=== PATIENT | female | born 1960 | race Caucasian/White ===

== ENCOUNTER 2019-05-03 07:19 | Emergency (ER) | payer OTHER, SELFPAY ==
[2019-05-03] VITALS (8 sets, daily range): BP systolic 115–159; BP diastolic 69–92; PULSE 60–85; RESP 11–18; TEMP 36.5; O2SAT 98–100
--- NOTE | ~2019-05-03 | XR_ITS ---
EXAMINATION: XR chest 1V portable EXAM DATE: 05/03/2019 08:15 INDICATION: Mid chest pain. TECHNIQUE: Portable AP frontal chest x-ray was obtained. Comparison is made to prior examination from 01/07/2019. FINDINGS: The lungs are clear. There are no pleural effusions. The cardiomediastinal silhouette is within normal limits. There is no pneumothorax suspected. The bones and soft tissues are unremarkab le. There are cholecystectomy clips. IMPRESSION: No acute cardiopulmonary findings. Reviewed, dictated and finalized at location B. [employer]
--- NOTE | 2019-05-03 07:31 | ECG_ITS ---
Measurements Intervals [address] Rate: 60 P: 61 CT: 134 QRS: 48 QRSD: 94 T: 55 QT: 383 QTc: 383 Interpretive Statements SINUS RHYTHM NORMAL ECG Electronically Signed On 05-03-2019 8:05:50 [employer] by Kirt Ruiz D.O.
--- NOTE | 2019-05-03 07:32 | ED.ANXIETY ---
HPI - Anxiety General Chief Complaint: Psychiatric Symptoms Stated Complaint: mini seizures , anxiety Time Seen by Provider: 05/03/19 07:25 Source: RN notes reviewed History of Present Illness HPI narrative: Patient presents to emergency department from home for anxiety. Patient states anxiety has been bad for the past 4 days. States she has a history of anxiety and was on Xanax but is been out of her Xanax for the last week. Patient says she was having some Suicidal thoughts 2 days ago and had thought of driving her car off of a bridge to end her anxiety but has no current suicidal thoughts. Patient states that when she gets anxious she feels like there is a shortness of breath that builds up in her abdomen and comes up through her chest. Denies any definitive chest pain Related Data Home Medications Medication Instructions Recorded Confirmed albuterol sulfate 90 mcg/actuation 2 puff INHALATION Q4H PRN gm 01/28/19 aerosol inhaler aspirin 81 mg tablet,delayed 81 mg PO DAILY 01/28/19 release dimenhydrinate 50 mg tablet 50 mg PO Q4-6H PRN 01/28/19 Allergies Allergy/AdvReac Type Severity Reaction Status Date / Time Penicillins Allergy Unknown Unknown Verified 05/03/19 07:33 Review of Systems Review of Systems: Narrative: Gen.: Denies fevers or chills Eyes: Denies eye pain or visual change ENT: Denies congestion Respiratory: Reports shortness of breath CV: Denies chest pain or palpitations GI: Denies abdominal pain nausea, emesis or diarrhea Musculoskeletal: Denies back pain or muscle pain Neuro: Denies numbness, tingling, weakness or focal weakness Skin: Denies rash Psych: Reports anxiety Except as documented, all other systems reviewed and negative [facility] Past Medical History Medical History Anxiety Arthritis Asthma Bilateral carpal tunnel syndrome Deficient knowledge of caesarean delivery Depression FH: cholecystectomy GI bleed Glaucoma Hiatal hernia Hypercholesterolemia Hypertension Lightheadedness VIDAL (obstructive sleep apnea) Pneumonia Urine ketones Vertigo Family History Family History Other Diabetes mellitus Family history of Alzheimer's disease Family history of cardiovascular disease Family history of coronary artery disease Hypertension Social History Social History Smoking status: Former smoker Second hand tobacco smoke exposure: No Smoking end date: 03/24/99 Alcohol intake: never Gender identity (if verbalized by the patient): Female Exam Narrative: Exam Narrative: APPEARANCE: No acute distress, nontoxic, resting in bed EYES: EOMI HEENT: Normocephalic, atraumatic, OMM RESPIRATORY: No respiratory distress Clear to auscultation bilaterally with no rhonchi wheezing or rales. CARDIOVASCULAR: Regular rate and rhythm without murmurs rubs or gallops. ABDOMINAL: Soft, nontender, nondistended, no rebound or guarding MUSCULOSKELETAl: Moves all extremities. No clubbing, cyanosis or edema. NEURO: Awake and alert. Following commands, speech normal, no focal deficits SKIN:: Warm, dry. No rashes lesions or abrasions PSYCHIATRIC: Anxious in appearance, denies suicidal ideation, denies homicidal ideation Mal affect/mood, Course Course Emergency Course: Patient evaluated by crisis special agent [employer]. Patient is felt stable for discharge at this time with follow-up as an outpatient. Again discussed with patient denies any suicidal homicidal ideation. States feeling much better following Ativan Discussed with patient results of workup and diagnosis. Discussed need for follow-up with primary care, proper use of medication, and reasons to return to the emergency department. Patient understands and agrees to current treatment plan Vital Signs Vital signs: Vital Signs Temperature 97.7 F 05/03/19 07:24 Pulse Rate
[2019-05-03] MEDS: LORAZEPAM INJ 2 MG/ML VIAL 0.5 MG IV PUSH (07:37)
[2019-05-03 07:49] LABS: Basophils Absolute Auto 0.1 K/mm3 (0.0-0.1); Basophils Percent Auto 0.6 % (0.2-1.2); Eosinophils Percent Auto 0.4 % (0-4.4); Hematocrit 41.4 % (37.0-47.0); Hemoglobin 13.2 g/dL (12.0-15.0); Immature Granulocyte Absolute 0.03 K/mm3 (0.00-0.031); Immature Granulocyte Percent A 0.4 % (0-0.5); Lymphocytes Absolute Auto 1.59 K/mm3 (0.9-3.2); Lymphocytes Percent Auto 18.6 % (18.3-44.2); Mean Corpuscular HGB Conc 31.9 g/dl (32-36); Mean Corpuscular Hemoglobin 28.4 pg (26-34); Mean Corpuscular Volume 89.2 fl (80-100); Mean Platelet Volume 9.4 fl (7.4-10.4); Monocytes Absolute Auto 0.5 K/mm3 (0.1-0.6); Neutrophils Absolute Auto 6.3 K/mm3 (1.3-6.7); Platelet Count Result 298 k/mm3 (150-375); Red Blood Count 4.64 M/mm3 (4.2-5.4); Red Cell Distribution Width 14.3 % (11.5-14.5); White Blood Count 8.5 K/mm3 (4.5-10.0)
[2019-05-03 08:01] LABS: Alanine Aminotransferase 20 U/L (4-35); Albumin Level 4.6 g/dL (3.5-5.1); Alkaline Phosphatase 88 U/L (38-126); Aspartate Amino Transferase 25 U/L (14-36); Bilirubin,Total 0.6 mg/dL (0.2-1.3); Blood Urea Nitrogen 19 mg/dL (7-17); Calcium 9.6 mg/dL (8.4-10.2); Carbon Dioxide 25 mmol/L (22-30); Chloride 103 mmol/L (98-107); Estimated Glomerular Filt Rate > 60; Glucose 110 mg/dL (65-105); INR 0.9; Prothrombin Time 12.1 Seconds (11.1-14.7); Sodium 141 mmol/L (137-145)
[2019-05-03 08:02] LABS: Partial Thromboplastin Time 23.5 SECONDS (22.3-36.8)
[2019-05-03 08:03] LABS: Ethanol < 10 mg/dL (<10)
[2019-05-03 08:04] LABS: Add Urine Microscopic? YES; Amorphous Sediment Urine Few; Appearance Urine Cloudy (Clear); Bacteria Urine Trace /hpf; Bilirubin Urine Negative (Negative); Blood Urine 1+ (Negative); Color Urine Yellow (Yellow); Glucose Urine UA Negative (Negative); Ketones Urine Trace mg/dL (Negative); Leukocyte Esterase Ur Negative LEU/UL (Negative); Mucus Urine Heavy /lpf; Nitrate Urine Negative (Negative); Protein Urine 1+ mg/dL (Negative); RBC Urine 0-2 /hpf (0-2); Specific Grav Ur 1.021 (1.001-1.035); Squamous Epithelial Cell Urine Occasional /hpf (Few); Urobilinogen Urine Negative mg/dL (<2.0); WBC Urine 0-3 /hpf
[2019-05-03 08:10] LABS: Amphetamine Screen Urine Negative (Negative); Barbiturate Screen Urine Negative (Negative); Benzodiazepines Screen Urine Positive (Negative); Cannabinoid Screen Urine Positive (Negative); Cocaine Screen Urine Negative (Negative); Methadone Screen Urine Negative (Negative); Opiate Screen Urine Negative (Negative); Phencyclidine Screen Urine Negative (Negative)
[2019-05-03 08:12] LABS: Troponin I < 0.012 ng/mL (0.000-0.034)
== END 2019-05-03 10:48 | disposition home or self-care (01) ==
PROVIDERS: Emergency Provider Emergency Medicine; PCP Family Medicine
DX: F41.9 Anxiety disorder, unspecified (principal); M19.90 Unspecified osteoarthritis, unspecified site; J45.909 Unspecified asthma, uncomplicated; F32.9 Major depressive disorder, single episode, unspecified; E78.5 Hyperlipidemia, unspecified; I10 Essential (primary) hypertension; G47.30 Sleep apnea, unspecified; Z87.891 Personal history of nicotine dependence
CPT/HCPCS: 36415; 71045; 80053; 80307; 81001; 84443; 84484; 85025; 85610; 85730; 93005; 96374; 99284; J2060

== ENCOUNTER 2019-06-01 12:22 | Emergency (ER) | payer OTHER, SELFPAY ==
[2019-06-01] VITALS (18 sets, daily range): BP systolic 131–151; BP diastolic 63–78; PULSE 54–66; RESP 10–19; TEMP 36.9; O2SAT 90–100
--- NOTE | ~2019-06-01 | CT_ITS ---
EXAMINATION: CT BRAIN W/O DATE: 06/01/2019 13:05 INDICATION: Dizziness TECHNIQUE: Computed tomography (CT) of the head was performed without intravenous contrast. The dose- length product was 529.67 mGy-cm. The mA was adjusted according to patient size. Iterative reconstruc tion technique was employed. COMPARISON: No prior studies for comparison. FINDINGS: Normal brain parenchymal volume for age. Normal silvestre-white differentiation. No acute intrac ranial hemorrhage, infarction, mass or mass effect. No ventriculomegaly or midline shift. Midline sagittal images demonstrate a normal corpus callosum, c raniovertebral junction and sella turcica. Basilar cisterns are patent. Paranasal sinuses and mastoids are pneumatized. No depressed skull fractures. IMPRESSION: 1. No acute intracranial abnormality. Reviewed, dictated and finalized at location A.
--- NOTE | ~2019-06-01 | XR_ITS ---
EXAMINATION: XR chest 2V 06/01/2019 13:10 INDICATION: Dyspnea. Seizure. PROCEDURE: 2 view chest COMPARISON: Comparison to multiple prior studies sequentially, with oldest reviewed study dated 07/2015. FINDINGS: The lungs are clear. The cardiomediastinal silhouette is within normal limits. There are no pleural effusions. There is no pneumothorax suspected. IMPRESSION: 1: NO ACUTE CARDIOPULMONARY DISEASE. Reviewed, dictated and finalized at location A.
--- NOTE | 2019-06-01 12:41 | ED.CHESTPAIN ---
HPI - Chest Pain General Chief Complaint: Chest Pain Stated Complaint: cp Time Seen by Provider: 06/01/19 12:24 Source: patient Mode of arrival: ambulatory Limitations: no limitations History of Present Illness HPI narrative: Pt is a 58 y/o female who presents to the ED with c/o CP. Pt states that she has a H/O CAD and HTN. She notes that she gets spells where she gets a johnson of electricity to her head , SOB, and feels like an elephant is sitting on her chest. She then gets hot flashes and cold sweats that last for 1-2 minutes. Pt had an episode yesterday while she was sitting in her office and then she had another episode today while she was walking. Pt is supposed to see a new mandarin tutor tomorrow but she does not know their name. MD complaint: chest pain Pertinent past history: coronary artery disease Onset (ago): day(s) (yesterday) Timing of current episode: episodic Onset: during rest and during exertion Quality: other ( elephant on chest ) Associated symptoms: diaphoresis, dyspnea and other (chills, johnson of electricity to her head ) Related Data Home Medications Medication Instructions Recorded Confirmed albuterol sulfate 90 mcg/actuation 2 puff INHALATION Q4H PRN gm 01/28/19 aerosol inhaler aspirin 81 mg tablet,delayed 81 mg PO DAILY 01/28/19 release dimenhydrinate 50 mg tablet 50 mg PO Q4-6H PRN 01/28/19 Allergies Allergy/AdvReac Type Severity Reaction Status Date / Time Penicillins Allergy Unknown Unknown Verified 06/01/19 12:33 Review of Systems Review of Systems: All systems reviewed & are unremarkable except as noted in HPI and below Constitutional: Constitutional: Reports chills and Reports other (sweats) Cardiovascular: Cardiovascular: Reports chest pain Respiratory: Respiratory: Reports dyspnea Neurologic: Reports other ( johnson of electricity to her head ) [facility] Social History Social History Smoking status: Former smoker Second hand tobacco smoke exposure: No Smoking end date: 03/24/99 Alcohol intake: never Gender identity (if verbalized by the patient): Female Exam Narrative: Exam Narrative: APPEARANCE: No acute distress, nontoxic, resting in bed HEENT: Normocephalic, atraumatic, OMM, TMs clear bilaterally EYES: PERRL, EOMI NECK: Supple, nontender, full range of motion without pain, no meningismus RESPIRATORY: No respiratory distress, clear to auscultation bilaterally with no rhonchi wheezing or rales CARDIOVASCULAR: RRR s murmur ABDOMINAL: Soft, nontender, nondistended MUSCULOSKELETAL: Moves all extremities. No clubbing, cyanosis or edema. NEURO: A and O ?3, following commands, speech normal, no facial droop, muscle strength 5 out of 5 bilateral upper and lower extremities SKIN:: Warm, dry. Normal Color PSYCHIATRIC: Normal affect/mood Course Course Emergency Course: Patient is remained asymptomatic throughout stay in ED Reviewed old records patient with history of anxiety Discussed with patient results of workup and diagnosis. Discussed need for follow-up with primary care, proper use of medication, and reasons to return to the emergency department. Patient understands and agrees to current treatment plan Vital Signs Vital signs: Vital Signs Temperature 98.4 F 06/01/19 12:26 Pulse Rate 66 06/01/19 12:26 Respiratory Rate 16 06/01/19 12:26 Blood Pressure 141/78 H 06/01/19 12:26 Pulse Oximetry 100 06/01/19 12:26 Temperature 98.4 F 06/01/19 12:26 Pulse Rate 61 06/01/19 14:17 Respiratory Rate 17 06/01/19 14:17 Blood Pressure 148/67 H 06/01/19 14:17 Pulse Oximetry 96 06/01/19 14:17 MDM - Chest Pain MDM Narrative Medical decision making narrative: Patient's EKGs and labs are without significant high risk changes. Cardiac risk factors reviewed. Patient is felt likely low risk for ACS and reasonable for further risk stratification testing as an outpatient. Pain was not sudden or maxi
--- NOTE | 2019-06-01 12:44 | ECG_ITS ---
Measurements Intervals [place] Rate: 59 P: 66 AR: 148 QRS: 40 QRSD: 93 T: 46 QT: 410 QTc: 407 Interpretive Statements SINUS BRADYCARDIA BASELINE ARTIFACT- I, II, AVF BORDERLINE ECG Electronically Signed On 06-01-2019 13:00:19 CDT by Kirt Ruiz D.O.
[2019-06-01 13:02] LABS: Basophils Percent Auto 0.6 % (0.2-1.2); Eosinophils Percent Auto 0.6 % (0-4.4); Hemoglobin 12.2 g/dL (12.0-15.0); Immature Granulocyte Absolute 0.01 K/mm3 (0.00-0.031); Immature Granulocyte Percent A 0.1 % (0-0.5); Lymphocytes Absolute Auto 2.12 K/mm3 (0.9-3.2); Lymphocytes Percent Auto 31.3 % (18.3-44.2); Mean Corpuscular HGB Conc 32.1 g/dl (32-36); Mean Corpuscular Hemoglobin 28.2 pg (26-34); Mean Platelet Volume 9.6 fl (7.4-10.4); Monocytes Absolute Auto 0.6 K/mm3 (0.1-0.6); Monocytes Percent Auto 8.6 % (2.6-8.5); Neutrophils Percent Auto 58.8 % (45.5-73.1); Platelet Count Result 296 k/mm3 (150-375); Red Blood Count 4.32 M/mm3 (4.2-5.4); Red Cell Distribution Width 14.2 % (11.5-14.5); White Blood Count 6.8 K/mm3 (4.5-10.0)
[2019-06-01 13:13] LABS: Blood Urea Nitrogen 19 mg/dL (7-17); Calcium 9.5 mg/dL (8.4-10.2); Carbon Dioxide 27 mmol/L (22-30); Chloride 104 mmol/L (98-107); Estimated CRCL calculation 77 ml/min; Estimated Glomerular Filt Rate > 60; Glucose 100 mg/dL (65-105); INR 0.9; Partial Thromboplastin Time 26.6 SECONDS (22.3-36.8); Potassium 3.8 mmol/L (3.4-5.0); Prothrombin Time 12.3 Seconds (11.1-14.7); Sodium 136 mmol/L (137-145)
[2019-06-01 13:16] LABS: D Dimer 0.28 ug/mL (<0.48)
[2019-06-01 13:25] LABS: Troponin I < 0.012 ng/mL (0.000-0.034)
[2019-06-01 15:55] LABS: Troponin I < 0.012 ng/mL (0.000-0.034)
== END 2019-06-01 16:39 | disposition home or self-care (01) ==
PROVIDERS: Emergency Provider Emergency Medicine; PCP Family Medicine
DX: R07.89 Other chest pain (principal); I25.10 Atherosclerotic heart disease of native coronary artery without angina pectoris; I10 Essential (primary) hypertension; Z87.891 Personal history of nicotine dependence; R42 Dizziness and giddiness
CPT/HCPCS: 36415; 70450; 71046; 80048; 84484; 85025; 85380; 85610; 85730; 93005; 99284

== ENCOUNTER 2019-10-05 14:51 | Outpatient (CLI) | payer OTHER, SELFPAY ==
--- NOTE | ~2019-10-05 | US_ITS ---
EXAMINATION: US joint non vasc comp LT DATE: 10/05/2019 15:22 INDICATION: Lump in the left popliteal fossa. Assess for Mckinney's cyst. TECHNIQUE: Multiple grayscale and Doppler ultrasound images of the left popliteal fossa were obtained with the patient both supine and standing. COMPARISON: None FINDINGS: No Mckinney's cyst or abnormal mass or fluid collections identified at the left popliteal fossa. The pop liteal artery and vein appear unremarkable with no evident aneurysm. IMPRESSION: 1. Unremarkable study with no Mckinney's cyst or other etiology identified for the reported palpable lum p at the left popliteal fossa. Reviewed, dictated and finalized at location A. IMPRESSION: 1. Unremarkable study with no Mckinney's cyst or other etiology identified for the reported palpable lump at the left popliteal fossa.
== END 2019-10-05 14:52 | disposition home or self-care (01) ==
PROVIDERS: PCP Family Medicine; Visit Provider Family Medicine
DX: R22.9 Localized swelling, mass and lump, unspecified (principal); M71.20 Synovial cyst of popliteal space [Baker], unspecified knee
CPT/HCPCS: 76881

== ENCOUNTER 2019-11-13 11:52 | Outpatient (CLI) | payer OTHER, SELFPAY ==
--- NOTE | ~2019-11-13 | XR_ITS ---
EXAMINATION: HAND-JAISON ARTHRITIS 3+VIEWS DATE: 11/13/2019 12:12 INDICATION: Primary osteoarthritis of the right hand. Bilateral thumb pain. TECHNIQUE: Posteroanterior, lateral, and oblique views of the left and of the right hands as well as a ballcatchers view of both hands were obtained. COMPARISON: None. FINDINGS: Alignment is normal. No fracture. Relatively symmetric pattern of polyarticular osteoarthritis of bot h hands, severe at the bilateral first carpal metacarpal joints, left greater than right, moderate at the bilateral third distal interphalangeal and right first interphalangeal joints and minimal to mil d at the remaining interphalangeal joints and a few of the remaining metacarpophalangeal joints. No c ortical erosions to suggest an inflammatory arthritis. IMPRESSION: 1. Relatively symmetric polyarticular osteoarthritis of both hands, severe at the bilateral first car pal metacarpal joints. Reviewed, dictated and finalized at location A. IMPRESSION: 1. Relatively symmetric polyarticular osteoarthritis of both hands, severe at t he bilateral first carpal metacarpal joints.
--- NOTE | ~2019-11-13 | XR_ITS ---
EXAMINATION: XR shoulder LT min 2V DATE: 11/13/2019 12:12 INDICATION: Impingement syndrome of the left shoulder TECHNIQUE: AP internally and externally rotated, AP oblique externally rotated and axillary views of the left shoulder were obtained. COMPARISON: Chest radiograph dated 08/07/2018 FINDINGS: Normal alignment. No fracture.Minimal acromioclavicular osteoarthritis. Glenohumeral joint space daryl ears normal. Indeterminate chronic lucent lesion with thin sclerotic margins along the inferior gleno id which can be seen on chest radiograph dated 08/07/2018 potentially a degenerative subarticular cyst . Visualized portions of the left lung are clear. Soft tissues are unremarkable. IMPRESSION: Chronic lucent lesion at the inferior left glenoid potentially a degenerative subarticular cyst altho ugh the joint space appears relatively preserved. Reviewed, dictated and finalized at location A. IMPRESSION: Chronic lucent lesion at the inferior left glenoid potentially a degenerative s ubarticular cyst although the joint space appears relatively preserved.
== END 2019-11-13 11:53 | disposition home or self-care (01) ==
PROVIDERS: PCP Family Medicine; Visit Provider Physician Assistant
DX: M19.041 Primary osteoarthritis, right hand (principal); M19.042 Primary osteoarthritis, left hand; M75.42 Impingement syndrome of left shoulder
CPT/HCPCS: 73030; 73130

== ENCOUNTER 2019-11-24 10:36 | Outpatient (CLI) | payer OTHER, SELFPAY ==
--- NOTE | ~2019-11-24 | MR_ITS ---
EXAMINATION: MR shoulder LT wo con DATE: 11/24/2019 12:04 INDICATION: Impingement syndrome presenting with left shoulder pain TECHNIQUE: Magnetic resonance imaging (MRI) of the left shoulder was performed without intravenous co ntrast. Sequences included axial PD-weighted FS FSE, coronal oblique PD-weighted FS FSE, coronal obli que T2-weighted FS FSE, sagittal PD-weighted FS FSE, and sagittal T1-weighted SE. COMPARISON: None. FINDINGS: Evaluation is limited by mild motion artifact on the sagittal T2-weighted sequence and moderate motio n artifact on the axial and oblique coronal sequences. Coracoacromial arch: The acromion undersurface is curved in morphology (type II) with tiny subacromial spur at the acromia l insertion of the normal coracoacromial ligament. Minimal acromioclavicular osteoarthritis. Rotator cuff: Moderate supraspinatus and mild infraspinatus tendinopathy. There is thinning of the distal 2 cm of t he supraspinatus tendon with partial-thickness undersurface tear. There appears to be small partial-t hickness articular sided tear/split tear measuring 1-2 mm in AP with at the insertion of the posterio r supraspinatus tendon. No definitive full-thickness tear defect appreciated however full-thickness p erforation cannot be excluded. Mild subscapularis tendinopathy. The long head of the biceps tendon ap pears subluxed across the medial rim of the intertubercular groove suggesting an intrasubstance split tear between the bursal side of the tendon which remains attached to the transverse humeral ligament and the mid deeper portion of the tendon which remains attached to the lesser tuberosity. The teres minor tendon is normal. Normal rotator cuff muscle bulk and signal. Biceps tendon, glenoid labrum and glenohumeral cartilage: Long head of the biceps tendon is normal. Likely tear at the posterior superior glenoid labrum which appears relatively convincing despite the presence of motion on the axial and coronal T2-weighted kaitlin ges. Deep chondral ulceration versus fissure with fluid signal extending deep to the cortex at the in ferior glenoid which is best appreciated on coronal series 6, image 8. There is underlying subarticul ar cystic change at the inferior glenoid. Fluid: Small amount of fluid and mild synovitis at the deep subscapular recess. No loose osteochondral geo s. Small amount of fluid and additional mild synovitis in the subacromial/subdeltoid bursa consistent which could be related to mild bursitis or compression of the glenoid humeral joint fluid through a full-thickness rotator cuff perforation. Small amount of fluid in the long head biceps tendon sheath. Bones: Bone alignment is normal. No fracture or pathologic marrow replacing process. IMPRESSION: 1. Moderately limited study due to significant motion on multiple sequences. 2. Moderate supraspinatus tendinopathy with poorly defined articular sided tear resulting in attenuat ion of the distal 2 cm the tendon and with small bursal sided tear at the posterior insertion. 2. Mild subscapularis tendinopathy with intra-articular split tear between the bursal side of the ten don in the mid to deep or portion which remains attached to the lesser tuberosity allowing medial sub luxation of the long head biceps tendon into the tear defect. 3. Mild glenohumeral osteoarthritis with small region of high-grade chondromalacia the inferior gleno id. 4. Likely tear at the posterior superior glenoid labrum. 5. Fluid in the subacromial/subdeltoid bursa which could be related to bursitis or decompression of t he glenohumeral joint effusion through possible full-thickness supraspinatus tendon perforation. Reviewed, dictated and finalized at location B. IMPRESSION: 1. Moderately limited stud
== END 2019-11-24 10:37 | disposition home or self-care (01) ==
PROVIDERS: PCP Family Medicine; Visit Provider Physician Assistant
DX: M75.42 Impingement syndrome of left shoulder (principal); M19.012 Primary osteoarthritis, left shoulder
CPT/HCPCS: 73221

== ENCOUNTER 2019-11-25 10:20 | Emergency (ER) | payer OTHER, SELFPAY ==
[2019-11-25] VITALS (7 sets, daily range): BP systolic 97–142; BP diastolic 51–91; PULSE 59–67; RESP 15–98; TEMP 36.8; O2SAT 15–98
--- NOTE | ~2019-11-25 | XR_ITS ---
EXAMINATION: XR chest 1V portable DATE: 11/25/2019 11:23 INDICATION: Chest pain. TECHNIQUE: A single frontal view of the chest was obtained. COMPARISON: Chest 2 views 06/01/2019 FINDINGS: The chest demonstrates clear lungs without pneumonia, pleural effusion, or pneumothorax. Th e heart size is normal. Surgical clips in the right upper quadrant are likely from cholecystectomy. IMPRESSION: 1. No acute cardiopulmonary disease. Reviewed, dictated and finalized at location A.
--- NOTE | 2019-11-25 10:38 | ECG_ITS ---
SINUS RHYTHM BASELINE ARTIFACT- I, II, III, AVL NORMAL ECG Electronically Signed On 11-25-2019 12:22:35 CDT by Kirt Ruiz D.O. COMPARED TO ECG 06/01/2019 12:28:51 SINUS RHYTHM NOW PRESENT MTDD
--- NOTE | 2019-11-25 10:49 | ED.GENADULT ---
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 Related Data Home Medications Medication Instructions Recorded Confirmed aspirin 81 mg tablet,delayed 81 mg PO DAILY 01/28/19 11/09/19 release dimenhydrinate 50 mg tablet 50 mg PO Q4-6H PRN 01/28/19 11/09/19 alprazolam 0.25 mg tablet 0.25 mg PO QID PRN tablet 08/09/19 11/09/19 escitalopram oxalate 20 mg tablet 20 mg PO DAILY 08/09/19 11/09/19 pitavastatin calcium 2 mg tablet 2 mg PO QPM 08/09/19 11/09/19 Allergies Allergy/AdvReac Type Severity Reaction Status Date / Time Penicillins Allergy Unknown Unknown Verified 11/25/19 11:27 Review of Systems Review of Systems: All systems reviewed & are unremarkable except as noted in HPI and below PMFSH Past Medical History Medical History Anxiety Arthritis Asthma Bilateral carpal tunnel syndrome BMI 33.0-33.9,adult Deficient knowledge of caesarean delivery Depression FH: cholecystectomy Generalized anxiety disorder GI bleed Glaucoma Hiatal hernia Hypercholesterolemia Hypertension Impingement syndrome of left shoulder Lightheadedness VIDAL (obstructive sleep apnea) Osteoarthritis of both hands Pneumonia Primary hypertension Upper back pain Urine ketones Vertigo Surgical History Surgical History H/O: hysterectomy History of bladder surgery Hx of tonsillectomy Family History Family History Other Diabetes mellitus Family history of Alzheimer's disease Family history of cardiovascular disease Family history of coronary artery disease Hypertension Social History Social History Smoking status: Former smoker Second hand tobacco smoke exposure: No Smoking end date: 03/24/99 Alcohol intake: never Gender identity (if verbalized by the patient): Female Exam Narrative: Exam Narrative: GENERAL: Well-appearing, well-nourished, uncomfortable, and in no acute distress. HEAD: Normocephalic, atraumatic. EYES: PERRLA and EOMI. ENT: Nares clear, no rhinorrhea or epistaxis. Mucous membranes moist. Oropharynx without tonsillar hypertrophy exudate or other lesions. NECK: Supple. No adenopathy or masses. CHEST: Clear to auscultation. No respiratory distress. No wheezes rales or rhonchi HEART: Regular rate and rhythm. No murmur heard. Normal peripheral pulses. ABDOMEN: Soft, nontender, nondistended EXTREMITIES: Normal range of motion. No edema. Tenderness of the left upper thoracic paraspinal musculature. No midline tenderness no cervical tenderness no rash or other deformities SKIN: Warm, dry, no rash. NEURO: No focal deficits. Alert and oriented x3. PSYCH: Normal mood and affect. Course Course Emergency Course: Patient in the room aware of case findings treatment plan and diagnosis agreeing to follow-up with orthopedic surgery and primary care had improvement with medications no high risk changes in the blood work or imaging Vital Signs Vital signs: Vital Signs Temperature 98.3 F 11/25/19 10:34 Pulse Rate 67 11/25/19 10:34 Respiratory Rate 17 11/25/19 10:34 Blood Pressure 142/91 H 11/25/19 10:34 Pulse Oximetry 98 11/25/19 10:34 Temperature 98.3 F
[2019-11-25 10:53] LABS: Basophils Percent Auto 0.7 % (0.2-1.2); Eosinophils Absolute Auto 0.2 K/mm3 (0-0.3); Eosinophils Percent Auto 2.7 % (0-4.4); Hematocrit 38.4 % (37.0-47.0); Hemoglobin 12.3 g/dL (12.0-15.0); Immature Granulocyte Absolute 0.01 K/mm3 (0.00-0.031); Immature Granulocyte Percent A 0.2 % (0-0.5); Lymphocytes Absolute Auto 2.69 K/mm3 (0.9-3.2); Lymphocytes Percent Auto 45.6 % (18.3-44.2); Mean Corpuscular Hemoglobin 28.1 pg (26-34); Mean Corpuscular Volume 87.7 fl (80-100); Mean Platelet Volume 9.4 fl (7.4-10.4); Monocytes Absolute Auto 0.5 K/mm3 (0.1-0.6); Monocytes Percent Auto 8.3 % (2.6-8.5); Neutrophils Absolute Auto 2.5 K/mm3 (1.3-6.7); Neutrophils Percent Auto 42.5 % (45.5-73.1); Platelet Count Result 279 k/mm3 (150-375); Red Blood Count 4.38 M/mm3 (4.2-5.4); Red Cell Distribution Width 14.6 % (11.5-14.5); White Blood Count 5.9 K/mm3 (4.5-10.0)
[2019-11-25] MEDS: IPRATROPIUM BR 0.02% INH SOLN 0.5 MG/2.5 ML VIAL INHALATION (10:55)
[2019-11-25] MEDS: ALBUTEROL SULFATE NEB 2.5 MG/0.5 ML INH 5 MG INHALATION (10:55)
[2019-11-25] MEDS: KETOROLAC 30 MG/ML VIAL (*BKC) IV PUSH (10:59)
[2019-11-25] MEDS: SODIUM CHLORIDE 0.9% IV 500 ML 999 ML IV CONT (11:00)
[2019-11-25 11:03] LABS: INR 0.9; Prothrombin Time 12.2 Seconds (11.1-14.7)
[2019-11-25 11:04] LABS: Partial Thromboplastin Time 27.5 SECONDS (22.3-36.8)
[2019-11-25 11:05] LABS: Alanine Aminotransferase 19 U/L (4-35); Albumin Level 4.4 g/dL (3.5-5.1); Alkaline Phosphatase 86 U/L (38-126); Anion Gap 6 mmol/L (8-16); Aspartate Amino Transferase 27 U/L (14-36); Bilirubin,Total 0.5 mg/dL (0.2-1.3); Blood Urea Nitrogen 19 mg/dL (7-17); Calcium 9.2 mg/dL (8.4-10.2); Carbon Dioxide 27 mmol/L (22-30); Chloride 104 mmol/L (98-107); Estimated CRCL calculation 67 ml/min; Estimated Glomerular Filt Rate > 60; Glucose 93 mg/dL (65-105); Lipase 88 U/L (23-300); Potassium 4.5 mmol/L (3.4-5.0); Sodium 137 mmol/L (137-145)
[2019-11-25 11:06] LABS: D Dimer 0.45 ug/mL (<0.48)
[2019-11-25 11:16] LABS: Troponin I 0.016 ng/mL (0.000-0.034)
[2019-11-25 11:24] LABS: Amphetamine Screen Urine Negative (Negative); Barbiturate Screen Urine Negative (Negative); Benzodiazepines Screen Urine Positive (Negative); Cannabinoid Screen Urine Positive (Negative); Cocaine Screen Urine Negative (Negative); Methadone Screen Urine Negative (Negative); Opiate Screen Urine Negative (Negative); Phencyclidine Screen Urine Negative (Negative)
== END 2019-11-25 12:24 | disposition home or self-care (01) ==
PROVIDERS: Emergency Medicine Emergency Medical Services; Emergency Provider Emergency Medicine; PCP Family Medicine
DX: M54.6 Pain in thoracic spine (principal); J45.909 Unspecified asthma, uncomplicated; H40.9 Unspecified glaucoma; E78.00 Pure hypercholesterolemia, unspecified; I10 Essential (primary) hypertension; G47.33 Obstructive sleep apnea (adult) (pediatric); M19.042 Primary osteoarthritis, left hand; F32.9 Major depressive disorder, single episode, unspecified; F41.1 Generalized anxiety disorder; M19.041 Primary osteoarthritis, right hand; Z87.891 Personal history of nicotine dependence; Z79.899 Other long term (current) drug therapy
CPT/HCPCS: 36415; 71045; 80053; 80307; 83690; 84484; 85025; 85380; 85610; 85730; 93005; 94640; 96361; 96374; 96375; 99284; J1100; J1885; J2060; J7040

== ENCOUNTER 2019-12-22 02:29 | Outpatient (CLI) | payer OTHER, SELFPAY ==
[2019-12-22 18:24] LABS: SARS-CoV-2 RNA PCR Negative
== END 2019-12-22 02:30 | disposition home or self-care (01) ==
LOC: ANHCOVIDDT 02:29
PROVIDERS: PCP Family Medicine; Visit Provider Orthopaedic Surgery
DX: Z01.812 Encounter for preprocedural laboratory examination (principal); Z20.828 Contact with and (suspected) exposure to other viral communicable diseases
CPT/HCPCS: 87635; C9803; U0003

== ENCOUNTER 2019-12-24 00:16 | Day surgery (SDC) | payer OTHER, SELFPAY ==
[2019-12-13 10:43] VITALS: BMI 31.2
[2019-12-24] VITALS (11 sets, daily range): BP systolic 119–162; BP diastolic 62–82; PULSE 60–73; RESP 14–20; TEMP 36.2–36.3; O2SAT 95–100
[2019-12-24] MEDS: CELECOXIB 200 MG CAPSULE PO (06:54)
[2019-12-24] MEDS: ACETAMINOPHEN 500 MG TABLET 1000 MG PO (06:54)
--- NOTE | 2019-12-24 07:23 | WPDHPUPDATE1 ---
History and Physical Update Update Date/Time: 12/24/19 07:23 History and Physical has been reviewed, including an updated exam of the patient. There are NO changes in the patient's condition. Risks, benefits, and alternatives have been discussed and questions answered. Patient agrees to proceed with procedure.
[2019-12-24] MEDS: LACTATED RINGERS 1,000 ML 30 ML IV CONT ×2 (07:45→10:16)
--- NOTE | 2019-12-24 08:13 | WPDANESPNB ---
Anes - Peripheral Nerve Block Date/Time: 12/24/19 08:13 I have discussed with the patient/family/POA the placement of a peripheral nerve block for post-operative pain management, including associated risks, benefits, complications, and side effects. Alternative methods of post-operative analgesia were detailed. Questions were solicited and answers provided to the satisfaction of the patient/family/POA. Time-Out: A pre-procedural Time-Out was completed immediately before starting the procedure and confirmed: Patient Identification, Site, Procedure, Patient Position and the Availability of Requisite Equipment. Clinical Indications: Acute post-operative pain management requested by the operative surgeon. Nerve Block Insertion Note Anes-nerve block: interscalene left Patient position: supine Needle: 22 gauge, stimulating, insulated echogenic needle. Needle length: 50 mm Technique: ultrasound Injectate: bupivacaine 0.5% with epi 5 mcg/ml (30) and dexamethasone (mg) (8) Observations: tolerated well Complications: none
[2019-12-24] MEDS: ceFAZolin 2 GM/D5W 50 ML 2 GM/50 ML BAG IVPB (08:28)
--- NOTE | 2019-12-24 10:20 | P.OP_ITS ---
Procedure Note - Detailed Date of procedure: 12/24/19 Pre-op diagnosis: left rotator cuff tear Post-op diagnosis: same Procedure performed: REPAIR OF LEFT ROTATOR CUFF Description of procedure: THE PATIENT WAS TAKEN TO THE OPERATING ROOM AND THEN INTUBATED AND PLACED IN THE BEACH CHAIR POSITION. THE LEFT UPPER EXTREMITY WAS PREPPED AND DRAPED IN THE NORMAL STERILE FASHION. AN INCISION WAS MADE IN BETWEEN THE LIYAH-LATERAL ACROMION AND THE AC JOINT. THE FASCIA WAS IDENTIFIED. NEXT A MINI OPEN INCISION WAS MADE THROUGH THE DELTOID MUSCLE EXPOSING THE SUBACROMIAL SPACE. A LIMITED ACROMIOPLASTY WAS PREFORMED. THE ROTATOR CUFF WAS IDENTIFIED. THERE WAS A FULL THICKNESS TEAR TO A LARGE PART OF THE CUFF. THERE WAS NO RETRACTION. THE TEAR MEASURED ABOUT 2 CM FROM ANTERIOR TO POSTERIOR. THE GREATER TUBEROSITY WAS DEBRIDED TO BLEEDING BONE. 3 ATHREX 5.5 SUTURE ANCHORS WERE PLACED IN TO GOOD BONE AND HAD VERY GOOD BITES. ELIOT-CARLOS TYPE REPAIRS WERE DONE TO THE ROTATOR CUFF AND THERE WAS GOOD APPROXIMATION TO THE GREATER TUBEROSITY. THE REPAIR WAS EXCELLENT. THERE WAS NO IMPINGEMENT ON THE REPAIR FROM THE ACROMION WITH RANGE OF MOTION. THE WOUND WAS IRRIGATED WITH COPIOUS AMOUNTS OF ANTIBIOTIC SOLUTION. THE DELTOID MUSCLE WAS REPAIRED WITH #2 FIBER WIRE AND 0 VICRYL SUTURE. THE SUBCUTANEOUS LAYER WAS APPROXIMATED WITH 2- 0 VICRYL. THE SKIN WAS APPROXIMATED WITH 3-0 QUIL AND DERMABOND. STERILE DRESSING WAS APPLIED. PATIENT WAS EXTUBATED. Anesthesia: GETA Surgeon: Bert Tabares MD Estimated blood loss (mL): 20 Complications: No immediate complications Condition: stable Disposition: PACU
[2019-12-24] MEDS: ONDANSETRON INJ 4 MG/2 ML VIAL IV PUSH (11:15)
[2019-12-24] MEDS: SCOPOLAMINE 1.5 MG PATCH TRANSDERM (11:35)
[2019-12-24] MEDS: diphenhydrAMINE HCl INJ 50 MG/ML VIAL 12.5 MG IV PUSH (11:35)
--- NOTE | 2020-01-04 10:46 | WPDANESEPPF ---
Anes - Initial Pre Proc Eval Procedure: Operation Date: 12/24/19 08:30 Proposed Procedures p Left Open Rotator Cuff Repair - Bert Tabares MD Date/Time: 01/04/20 10:46 Surgeon: Bert Tabares MD Pre Op Diagnosis: left rotator cuff tear Patient Data Age: 59 Gender: F Height: 5 ft Weight: 76.2 kg Last Vital Signs Temp 36.2 C L 12/24/19 10:16 Pulse 63 12/24/19 13:36 Resp 14 12/24/19 13:36 BP 136/74 12/24/19 13:36 Pulse Ox 95 12/24/19 11:00 Allergies Allergy/AdvReac Type Severity Reaction Status Date / Time Penicillins AdvReac Mild rash- Verified 12/24/19 06:49 occured as child Home Medications Medication Instructions Recorded Confirmed Type aspirin 81 mg tablet,delayed 81 mg PO DAILY 01/28/19 12/24/19 History release dimenhydrinate 50 mg tablet 50 mg PO Q4-6H PRN 01/28/19 12/24/19 History alprazolam 0.25 mg tablet 0.25 mg PO QID PRN tablet 08/09/19 12/24/19 History escitalopram oxalate 20 mg tablet 20 mg PO DAILY 08/09/19 12/24/19 History pitavastatin calcium 2 mg tablet 2 mg PO QPM 08/09/19 12/24/19 History budesonide-formoterol HFA 160 2 inhalation INHALATION Q12H #6 gm 08/27/19 12/24/19 Rx mcg-4.5 mcg/actuation aerosol inhaler cholecalciferol (vitamin D3) 1,250 50,000 unit PO WEEKLY #12 cap 08/27/19 12/24/19 Rx mcg (50,000 unit) capsule losartan 25 mg tablet 25 mg PO DAILY #90 tablet 11/01/19 12/24/19 Rx meloxicam 15 mg tablet 15 mg PO DAILY #30 tablet 12/13/19 12/24/19 Rx cyclobenzaprine 5 mg tablet 5 mg PO TID PRN #10 tablet 12/15/19 12/24/19 Rx hydrocodone-acetaminophen [[place]] 1 tablet PO Q6H PRN #60 tablet NS 12/24/19 Rx Patient hx anesthesia problems: none Family hx anesthesia problems: none PMFSH Past Medical History Medical History Anxiety Arthritis Asthma Bilateral carpal tunnel syndrome BMI 33.0-33.9,adult Deficient knowledge of caesarean delivery Depression FH: cholecystectomy Generalized anxiety disorder GI bleed Glaucoma Hiatal hernia Hypercholesterolemia Hypertension Impingement syndrome of left shoulder Lightheadedness VIDAL (obstructive sleep apnea) Osteoarthritis of both hands Pneumonia Primary hypertension Rotator cuff arthropathy of left shoulder Rotator cuff tear Upper back pain Urine ketones Vertigo Surgical History Surgical History H/O: hysterectomy History of bladder surgery Hx of tonsillectomy Family History Family History Other Diabetes mellitus Family history of Alzheimer's disease Family history of cardiovascular disease Family history of coronary artery disease Hypertension Social History Social History Smoking packs per day: 1.5 Smoking cigarettes per day: 30.0 Years smoked: 10 Smoking pack-years: 15.00 Smoking status: Former smoker Tobacco type: cigarettes Second hand tobacco smoke exposure: No Smoking end date: 03/24/99 Additional smoking assessment comments: quit 1999 Alcohol intake: never Substance use: current Substance use type: marijuana Last use: 12/12/19 Gender identity (if verbalized by the patient): Female Spiritual care concerns: No Anes - Eval Final PreProcedure Day of Procedure 01/04/20 10:46 Patient weight: obese Heart: regular rate and rhythm Lungs: clear to auscultation Airway: Mallampati scale class II Neurological: alert and oriented Last oral intake: >/= 8 hours ASA classification: III Emergent: no Anesthetic plan: proceed Anesthesia type and monitoring: general ETT and standard monitoring Informed Consent: The patient's anesthetic plan was discussed prior to surgery and prior to nerve block placed by me and documented before surgery. This is a late entry of preoperative evaluation day of surgery. Attendant risks and shayna
== END 2019-12-24 13:36 | disposition home or self-care (01) ==
PROVIDERS: PCP Family Medicine; Visit Provider Orthopaedic Surgery
PROC: (CPT 23420; principal; 2019-12-24 08:30)
DX: M75.112 Incomplete rotator cuff tear or rupture of left shoulder, not specified as traumatic (principal); G89.18 Other acute postprocedural pain; G89.29 Other chronic pain; F41.9 Anxiety disorder, unspecified; E78.00 Pure hypercholesterolemia, unspecified; I10 Essential (primary) hypertension; G47.33 Obstructive sleep apnea (adult) (pediatric); Z87.891 Personal history of nicotine dependence; Z79.82 Long term (current) use of aspirin
CPT/HCPCS: 64415; 23412; A9270; C1713; J0330; J0690; J1100; J1200; J2250; J2370; J2405; J2704; J2710; J3010; J7120

== ENCOUNTER 2020-02-16 08:00 | Outpatient (RCR) | payer OTHER, SELFPAY ==
[2020-01-19 09:05] VITALS: BP_SYST 145
--- NOTE | 2020-01-19 10:12 | PTOPEVAL ---
PHYSICAL THERAPY EVALUATION AND PLAN OF CARE 01-19-2020 Thank you for referring Kayla Matias to [facility], s/p L rotator cuff repair.? Kayla is scheduled to be seen for therapy? 2 x/week for 4 weeks. Please review, sign, date and return this plan of care ANGELICA. I agree with and certify that the following plan of care is medically necessary. Referring Physician Date Attending Provider: Bert Tabares MD *PT Outpatient Evaluation Document 01/19/20 09:05 YOLIE (Rec: 01/19/20 10:01 YOLIE [id number]) Outpatient Past Medical History Past Medical History Source of Past Medical History Patient Neurological History Hx Neurological Disorders No Significant History Cardiovascular History Hx Angina Yes Hx Coronary Artery Disease Yes Hx Hypercholesterolemia Yes: meds Hx Hypertension Yes: meds Hx Other Cardiac Disorders Yes Respiratory History Hx Asthma Yes Gastrointestinal History Hx Cholecystectomy Yes Genitourinary History Hx Genitourinary Disorders No Significant History Musculoskeletal History Hx Arthritis Yes: hands and shoulders Hx Back Pain Yes: BULGING DISC L4-L5 Hx Other Musculoskeletal Disorders Yes: R shoulder pain- tears, non surgical- had PT Hematological History Hx Hematological Disorders No Significant History Endocrine History Hx Endocrine Disorders No Significant History HEENT History Hx HEENT Disorders No Significant History Integumentary History Hx Skin Disorders No Significant History Reproductive History Hx Section Yes: 3x Hx Hysterectomy Yes: D/T OVARIAN CYSTS Psychosocial History Hx Anxiety Yes Pain History Has Past Pain Affected Your Daily Life Yes: L & R SHOULDER, BACK PAIN Anesthesia History Hx Anesthesia Reactions No Significant History Other History Hx Other Medical Conditions Yes: vertigo- take meds for Evaluation Information Problem Diagnosis s/p L shoulder- rotator cuff repair Onset 12-24-2019 Subjective Information since surgery, have been Query Text:As Reported By Patient/ moving L hand, no lifting over Family 5#; have been using L arm, probably more than she should do-moving some furniture and home tasks; if have more pain, using her sling; Prior Level of Function Activity Level (Last 3 Months) 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
--- NOTE | 2020-01-19 10:32 | PCPTNOTE ---
called Dr Gaffney office and talked with Earlene to clarify pt activity with exercises; she stated pt can progress exercises as tolerated to AAROM and strengthening; the initial order states PROM x 6 weeks, which pt has not been observing at home; Faxed order for to sign for clarification of above;
--- NOTE | 2020-02-03 07:34 | PCPTNOTE ---
Patient called & cancelled scheduled appointment this date due to getting tested for COVID.
--- NOTE | 2020-02-16 08:36 | PTOPEVAL ---
PHYSICAL THERAPY DISCHARGE 02-16-2020 Refer to the clinical summary below for her status at discharge. All of the goals were achieved, except pain rating at the worst and shoulder abduction strength. Thank you for referring Kayla Matias to [facility].? Please review, sign, date and return this discharge ANGELICA. I agree with and certify that the following plan of care is medically necessary. Referring Physician Date Attending Provider: Bert Tabares MD *PT Outpatient Discharge Document 02/16/20 08:06 YOLIE (Rec: 02/16/20 08:28 YOLIE [id number]) Subjective Information Kayla reports: returned to Query Text:As Reported By Patient/ work yesterday-- did OK, Family shoulder is tired but did OK; saw dr 2 days ago- he released to return to work; some soreness over incision when rub; doing all exercises at home; still have some problems reaching overhead and lifting something heavy; feels like she is ready to be done with PT. Pain Assessment Timing of Pain Assessment Timing of Pain Assessment Assessment Pain Scale Pain Scale Used Numeric (1 - 10) Self Report Pain Assessment Left Shoulder(s) Reported Pain Level 0 Pain Description Aching Pain Frequency Chronic Other Pain Description tired in shoulder; little achey in back of shoulder; Lowest Pain Intensity 0 Greatest Pain Intensity 5 Additional Pain Comments no problems lying on L shoulder; Pain Score Pain Score 0: Self Report Interventions Used Interventions Used By Clinicians Education Upper Extremity Range of Motion General Upper Extremity Range of Motion Gross Upper Extremity Range of Motion L shoulder: standing AROM: Comments flexion and abduction 160', IR - reach behind back, fingers to lower scapula; ER- reach to back of head; no pain reported Upper Extremity Muscle Strength Testing General Upper Extremity Strength Gross Upper Extremity Strength Comments standing x 5 reps: L shoulder flexion 4#, abduction 2# x 5 reps; ER 3# x 5 reps, through full ROM; B UE lifting box: floor/waist 30# x 3 reps, stop due to heavy and feel in back; verbal reminders for correct lifting techniq
== END 2020-02-16 13:04 | disposition home or self-care (01) ==
LOC: ANHPT 08:00
PROVIDERS: PCP Family Medicine; Visit Provider Orthopaedic Surgery
DX: Z48.89 Encounter for other specified surgical aftercare (principal)
CPT/HCPCS: 97110; 97140; 97161

== ENCOUNTER 2020-08-16 12:40 | Outpatient (CLI) | payer OTHER, SELFPAY ==
--- NOTE | ~2020-08-16 | MR_ITS ---
EXAMINATION: MR shoulder RT wo con DATE: 08/16/2020 13:25 INDICATION: Right shoulder pain TECHNIQUE: Magnetic resonance imaging (MRI) of the right shoulder was performed without intravenous c ontrast. Sequences included axial PD-weighted FS FSE, coronal oblique PD-weighted FS FSE, coronal obl ique T2-weighted FS FSE, sagittal PD-weighted FS FSE, and sagittal T1-weighted SE. COMPARISON: Right shoulder radiographs dated 07/31/2020 and MRI dated 11/16/2017 FINDINGS: Minimal to mild motion artifact on all sequences most prominent in the axial and sagittal images. Coracoacromial arch: The acromion undersurface is flat in morphology (type I). Mild thickening of the coracoacromial ligam ent at its acromial attachment where there is a small lateral subacromial spur. Mild acromioclavicula r osteoarthritis. Rotator cuff: Moderate supraspinatus and infraspinatus tendinopathy. There is a tear of the distal supraspinatus te ndon measuring approximately 1 cm AP and medial to lateral which is either a high-grade partial bursa l sided tear involving at least two thirds of the tendon thickness and potentially full-thickness tea r. The tear appears to extend an additional 1 cm posteriorly as a less severe intrasubstance tear luís ng the middle facet footplate of the infraspinatus tendon. There is an approximately 5 x 4 mm globula r region of low signal intensity at the distal aspect of the posterior infraspinatus tendon which daryl ears to correspond to several small globular region of calcific density on the prior radiograph consi stent with calcific tendinitis. The teres minor tendon is normal. Mild subscapularis tendinopathy. Th ere is attenuation of the portion this of the subscapularis tendon extending across the cephalad two thirds of the lesser tuberosity footplate with thin linear fluid signal intensity extending along the footplate suggesting bursal sided tear at the footplate with residual intact articular side of the t endon remaining contiguous with the intact transverse humeral ligament. The more caudal third of the lesser tuberosity footplate including the muscular attachment of the subscapularis remains intact. Th ere is moderate fatty atrophy of the cephalad two thirds of the subscapularis tendon. Biceps tendon, glenoid labrum and glenohumeral cartilage: There is complete tear of the long head biceps tendon which is not visualized likely retracted multil evel of the intertubercular groove. SLAP tear of the superior to posterior glenoid labrum. There is i ncreased soft tissue density extending posterior superiorly from the posterior superior glenoid labru m which could represent posterior reflection of the intra-articular portion of the torn long head bic eps tendon. Glenohumeral cartilage appears normal although assessment is limited by the motion artifa ct. Fluid: Moderate-sized glenohumeral joint effusion with expected extension into the deep subscapular recess a s well as the long head biceps tendon sheath. There is moderate amount of fluid in the subacromial/peterson bdeltoid bursa which could be related to bursitis and/or decompression of the glenohumeral joint flui d through a full-thickness perforation likely at the supraspinatus tendon. No loose osteochondral bod ies. Bones: No fracture or pathologic marrow replacing process. Cystic changes at the lesser tuberosity and along the superior facet of the greater tuberosity likely related to chronic rotator cuff disease. IMPRESSION: 1. Moderate supraspinatus and infraspinatus tendinopathy with high-grade bursal sided partial thickne ss or more likely full-thickness tear of the supraspinatus tendon extending posteriorly as and mild i ntrasubstance tear of the distal infraspinatus tendon. 2. Mild subscapularis tendinopathy with avulsion of the cephalad two thirds of the lesser tuberosity footplate which appears chronic with moderate fatty atrophy of th
== END 2020-08-16 12:41 | disposition home or self-care (01) ==
PROVIDERS: PCP Physician Assistant; Visit Provider Orthopaedic Surgery
DX: M19.011 Primary osteoarthritis, right shoulder (principal); S43.431A Superior glenoid labrum lesion of right shoulder, initial encounter; X58.XXXA Exposure to other specified factors, initial encounter
CPT/HCPCS: 73221

== ENCOUNTER 2020-09-12 09:38 | Outpatient (CLI) | payer OTHER, SELFPAY ==
--- NOTE | 2020-09-12 | EST_ITS ---
Patient Info Name: Kayla Matias Age: 59 years : 1960 Gender: Female Ht: 59 in Wt: 176 lbs BSA: 1.86 m2 Exam Date: 09/12/2020 12:52 PM Exam Location: [facility] Stress Patient Status: Outpatient Admit Date: 09/12/2020 Staff Ordering Physician: Migue Hernández MD Attending Provider: Migue Hernández MD Exercise Technologist: Yin Kennedy RDCS Exercise Physician: Bucky Haile MD Exam Type: CA stress mary kay w NM Study Info Indications - cad I35.0 - Nonrheumatic aortic (valve) stenosis A regadenoson stress test was performed. Summary 1. No abnormal ST segment depression with Lexiscan. Accentuation of T-wave inversion which was already present in inferolateral leads was seen. 2. Patient did have chest tightness with Lexiscan infusion. Protocol: Lexiscan Stress ECG Details Stage: REST Duration (min): 0 min : 58 sec HR (bpm): 51 SBP (mmHg): 140 DBP (mmHg): 84 Stage: REST Duration (min): 2 min : 57 sec HR (bpm): 53 SBP (mmHg): 140 DBP (mmHg): 84 Stage: STAGE 1 Duration (min): 1 min : 0 sec HR (bpm): 77 SBP (mmHg): 133 DBP (mmHg): 77 Stage: RECOVERY Duration (min): 1 min : 0 sec HR (bpm): 90 SBP (mmHg): 133 DBP (mmHg): 77 Stage: RECOVERY Duration (min): 2 min : 0 sec HR (bpm): 87 SBP (mmHg): 169 DBP (mmHg): 78 Stage: RECOVERY Duration (min): 3 min : 0 sec HR (bpm): 82 SBP (mmHg): 164 DBP (mmHg): 77 Stage: RECOVERY Duration (min): 4 min : 0 sec HR (bpm): 80 SBP (mmHg): 164 DBP (mmHg): 77 Stage: RECOVERY Duration (min): 5 min : 0 sec HR (bpm): 72 SBP (mmHg): 161 DBP (mmHg): 81 Stage: RECOVERY Duration (min): 5 min : 2 sec HR (bpm): 72 SBP (mmHg): 161 DBP (mmHg): 81 Rest HR: 53 bpm Peak HR: 92 bpm Rest Sys BP: 140 mmHg Peak Sys BP: 169 mmHg Max Pred HR: 161 bpm % Max Pred HR: 57 % Target HR: 137 bpm Max RPP: 15,548 bpm*mmHg Target HR Summary: Hemodynamic response to exercise was normal BP Response: Normal blood pressure response Termination Reason: Completed protocol Cardiac Symptoms: Chest discomfort Total Time: 1 min : 0 sec [place] BP: 84 mmHg [place] BP: 78 mmHg Total Dose: 0.4 mg Resting ECG Normal sinus rhythm. Inferolateral T wave abnormalities, consider ischemia. Stress ECG No abnormal ST segment depression with Lexiscan. Accentuation of T-wave inversion which was already present in inferolateral leads was seen. Arrhythmias None. Report Signatures
--- NOTE | 2020-09-12 | ECHO_ITS ---
Patient Info Name: Kayla Matias Age: 59 years : 1960 Gender: Female Ht: 59 in Wt: 176 lbs BSA: 1.86 m2 HR: 58 bpm BP: 143 / 80 mmHg Heart Rhythm: Sinus Rhythm Exam Date: 09/12/2020 10:00 AM Exam Location: [facility]monary Patient Status: Outpatient Admit Date: 09/12/2020 Staff Ordering Physician: Migue Hernández MD [facility] Sales Consultant: Kelsi Maria RDCS Attending Provider: Migue Hernández MD Exam Type: CA echo doppler color flow Study Info Indications - MILD AORTIC STENOSIS, CAD Complete two-dimensional, color flow and Doppler transthoracic echocardiogram is performed. Summary 1. Complete two-dimensional, color flow and Doppler transthoracic echocardiogram is performed. 2. Left ventricular chamber dimension is normal. 3. Left ventricular systolic function is normal, estimated at 65-70%. 4. There is mildly increased left ventricular wall thickness. 5. The left ventricular diastolic function is normal. 6. The basal inferior wall is hypokinetic. 7. Left atrial chamber dimension is mildly enlarged. 8. There is mild aortic valve calcification. 9. There is mild mitral valve regurgitation. 10. There is mild tricuspid valve regurgitation. 11. Moderate pulmonary hypertension, estimated pulmonary arterial systolic pressure is 49 mmHg. 12. There is mild pulmonic regurgitation. Left Ventricle Left ventricular chamber dimension is normal. Left ventricular systolic function is normal, estimated at 65-70%. There is mildly increased left ventricular wall thickness. The left ventricular diastolic function is normal. The basal inferior wall is hypokinetic. All other roche appear normal. Right Ventricle Right ventricular chamber dimension is normal. Right ventricular systolic function is normal. Left Atria Left atrial chamber dimension is mildly enlarged. Right Atria Right atrial chamber dimension is normal. Atrial Septum Intact interatrial septum visualized by color flow imaging. Aortic Valve The aortic valve is trileaflet. There is mild aortic valve sclerosis. There is no aortic valve stenosis. There is trace aortic valve regurgitation. There is mild aortic valve calcification. Pulmonic Valve The pulmonic valve is normal. There is no pulmonic valve stenosis. There is mild pulmonic regurgitation. Mitral Valve The mitral valve has normal leaflets. There is no mitral valve stenosis. There is mild mitral valve regurgitation. Tricuspid Valve The tricuspid valve leaflets are normal. There is no significant tricuspid valve stenosis. There is mild tricuspid valve regurgitation. Moderate pulmonary hypertension, estimated pulmonary arterial systolic pressure is 49 mmHg. Pericardium/Pleural The pericardium appears normal. There is no pericardial effusion. Inferior Vena Cava Normal inferior vena cava with <50% collapse upon inspiration consistent with elevated right atrial pressure, 10 mmHg. Aorta The aortic root size at the sinus of Valsalva is normal. The prox ascending aorta size is normal. Left Ventricular Outflow Tract Name Value Normal LVOT 2D LVOT Diameter 1.8 cm LVOT Doppler
--- NOTE | ~2020-09-12 | NM_ITS ---
EXAMINATION: NM mary kay stress w perfusion DATE: 09/12/2020 14:02 INDICATION: Coronary artery disease. Mild aortic stenosis. TECHNIQUE: Rest images were obtained following intravenous administration of 10.5 mCi Tc99m tetrofosm in (Myoview). The patient was infused intravenously with Lexiscan (Regadenoson). Then, 32.8 mCi Tc99m tetrofosmin (Myoview) was administered intravenously, and stress images were obtained. Data was aubree nstructed into short axis and horizontal and vertical long axis SPECT images. Gated SPECT images were also obtained. COMPARISON: None. FINDINGS: There is no definite reversible or fixed perfusion abnormality to suggest ischemia or infar ction. There is normal left ventricular chamber size, wall motion and ejection fraction. Left ventr icular ejection fraction measures 71%. IMPRESSION: 1. Normal myocardial perfusion at rest and during stress. 2. Left ventricular ejection fraction measuring 71%. Reviewed, dictated and finalized at location A.
== END 2020-09-12 09:39 | disposition home or self-care (01) ==
PROVIDERS: PCP Physician Assistant; Visit Provider Internal Medicine Cardiovascular Disease
DX: I25.118 Atherosclerotic heart disease of native coronary artery with other forms of angina pectoris (principal); I08.3 Combined rheumatic disorders of mitral, aortic and tricuspid valves
CPT/HCPCS: 78452; 93017; 93306; A9502; J2785

== ENCOUNTER 2020-09-19 01:34 | Day surgery (SDC) | payer OTHER, SELFPAY ==
[2020-09-04 14:45] VITALS: BMI 33.3
[2020-09-19] VITALS (16 sets, daily range): BP systolic 115–149; BP diastolic 59–86; PULSE 64–79; RESP 14–18; TEMP 36.1–37.2; O2SAT 92–100
--- NOTE | 2020-09-19 07:31 | WPDHPUPDATE1 ---
History and Physical Update Update Date/Time: 09/19/20 07:31 History and Physical has been reviewed, including an updated exam of the patient. There are NO changes in the patient's condition. Risks, benefits, and alternatives have been discussed and questions answered. Patient agrees to proceed with procedure.
[2020-09-19] MEDS: CELECOXIB 200 MG CAPSULE PO (12:21)
[2020-09-19] MEDS: ACETAMINOPHEN 500 MG TABLET 1000 MG PO (12:21)
[2020-09-19] MEDS: LACTATED RINGERS 1,000 ML 30 ML IV CONT ×2 (12:36→15:57)
--- NOTE | 2020-09-19 13:09 | WPDANESEPPF ---
Anes - Initial Pre Proc Eval Procedure: Operation Date: 09/19/20 14:00 Proposed Procedures p Right Rotator Cuff Repair with Biceps Tenodesis - Bert Tabares MD Date/Time: 09/19/20 13:09 Surgeon: Bert Tabares MD Pre Op Diagnosis: right rotator cuff tear/right retracted biceps ten Patient Data Age: 59 Gender: F Height: 1.5 m Weight: 78.8 kg Last Vital Signs Temp 37.2 C 09/19/20 12:05 Pulse 71 09/19/20 12:05 Resp 16 09/19/20 12:05 BP 128/86 09/19/20 12:05 Pulse Ox 96 09/19/20 12:05 Allergies Allergy/AdvReac Type Severity Reaction Status Date / Time Penicillins AdvReac Mild rash- Verified 09/19/20 12:15 occured as child Home Medications Medication Instructions Recorded Confirmed Type aspirin 81 mg tablet,delayed 81 mg PO DAILY 01/28/19 09/19/20 History release dimenhydrinate 50 mg tablet 50 mg PO Q4-6H PRN 01/28/19 09/19/20 History alprazolam 0.25 mg tablet 0.25 mg PO QID PRN tablet 08/09/19 09/19/20 History escitalopram oxalate 20 mg tablet 20 mg PO DAILY 08/09/19 09/19/20 History budesonide-formoterol HFA 160 2 inhalation INHALATION Q12H #6 gm 08/27/19 09/19/20 Rx mcg-4.5 mcg/actuation aerosol inhaler rosuvastatin 10 mg tablet 10 mg PO DAILY 04/27/20 09/04/20 History losartan 25 mg tablet 25 mg PO DAILY #90 tablet 06/19/20 09/19/20 Rx cholecalciferol (vitamin D3) 1,250 50,000 unit PO WEEKLY #12 cap 07/26/20 09/19/20 Rx mcg (50,000 unit) capsule tramadol 50 mg tablet 50 mg PO Q6H PRN 08/31/20 09/19/20 History Patient hx anesthesia problems: none Family hx anesthesia problems: none PMFSH Past Medical History Medical History Anxiety Arthritis Asthma Bilateral carpal tunnel syndrome BMI 33.0-33.9,adult Deficient knowledge of caesarean delivery Depression FH: cholecystectomy Generalized anxiety disorder GI bleed Glaucoma Hiatal hernia Hypercholesterolemia Hypertension Impingement syndrome of left shoulder Lightheadedness VIDAL (obstructive sleep apnea) Osteoarthritis of both hands Pneumonia Primary hypertension Right shoulder pain Rotator cuff arthropathy of left shoulder Rotator cuff tear Sleep apnea Upper back pain Urine ketones Vertigo Weight gain Surgical History Surgical History H/O: hysterectomy History of bladder surgery Hx of tonsillectomy Family History Family History Other Diabetes mellitus Family history of Alzheimer's disease Family history of cardiovascular disease Family history of coronary artery disease Hypertension Social History Social History Smoking packs per day: 0.5 Smoking cigarettes per day: 10.0 Years smoked: 10 Smoking pack-years: 5.00 Smoking status: Former smoker Tobacco type: cigarettes Second hand tobacco smoke exposure: No Smoking end date: 03/24/99 Additional smoking assessment comments: quit 2000 Alcohol intake: never Substance use: current Substance use type: marijuana Other substance usage details: EDIBLES Last use: 09/04/20 Living arrangements: alone Gender identity (if verbalized by the patient): Female Spiritual care concerns: No Anes - Eval Final PreProcedure Day of Procedure 09/19/20 13:09 Patient weight: obese Heart: regular rate and rhythm Lungs: clear to auscultation Airway: Mallampati scale class II Neurological: alert and oriented Last oral intake: >/= 8 hours ASA classification: III Emergent: no Anesthetic plan: proceed Anesthesia type and monitoring: general ETT and standard monitoring Informed Consent: The patient's anesthetic plan and its attendant risks and benefits were discussed with the patient/family/POA. Questions were solicited and answers provided to the satisfaction of the patient/family/POA.
--- NOTE | 2020-09-19 14:02 | WPDANESPNB ---
Anes - Peripheral Nerve Block Date/Time: 09/19/20 14:02 I have discussed with the patient/family/POA the placement of a peripheral nerve block for post-operative pain management, including associated risks, benefits, complications, and side effects. Alternative methods of post-operative analgesia were detailed. Questions were solicited and answers provided to the satisfaction of the patient/family/POA. Time-Out: A pre-procedural Time-Out was completed immediately before starting the procedure and confirmed: Patient Identification, Site, Procedure, Patient Position and the Availability of Requisite Equipment. Clinical Indications: Acute post-operative pain management requested by the operative surgeon. Nerve Block Insertion Note Anes-nerve block: interscalene right Patient position: supine Skin prep: chlorhexidine Needle: 22 gauge, stimulating, insulated echogenic needle. Needle length: 50 mm Technique: ultrasound Injectate: bupivacaine 0.5% with epi 5 mcg/ml (20) and dexamethasone (mg) (8) Observations: tolerated well Complications: none Procedure start time:: 1350 Procedure end time:: 1400
[2020-09-19] MEDS: ceFAZolin 2 GM/D5W 50 ML 2 GM/50 ML BAG IVPB (14:13)
--- NOTE | 2020-09-19 15:37 | W.PM.PROC2 ---
Procedure Note - Detailed Date of Procedure 09/19/20 Pre-op Diagnosis right rotator cuff tear/right retracted biceps ten Post-op Diagnosis same Procedure Performed REPAIR RIGHT ROTATOR CUFF Surgeon Bert Tabares MD Anesthesia general Description of Procedure THE PATIENT WAS TAKEN TO THE OPERATING ROOM AND THEN INTUBATED AND PLACED IN THE BEACH CHAIR POSITION. THE RIGHT UPPER EXTREMITY WAS PREPPED AND DRAPED IN THE NORMAL STERILE FASHION. AN INCISION WAS MADE IN BETWEEN THE LIYAH-LATERAL ACROMION AND THE AC JOINT. THE FASCIA WAS IDENTIFIED. NEXT A MINI OPEN INCISION WAS MADE THROUGH THE DELTOID MUSCLE EXPOSING THE SUBACROMIAL SPACE. A LIMITED ACROMIOPLASTY WAS PREFORMED. THE ROTATOR CUFF WAS IDENTIFIED. THERE WAS A FULL THICKNESS TEAR. IT MEASURED APPROXIMATELY 2 CM X 2 CM. THE BICEPS TENDON WAS RETRACTED AND WAS STABLE IT WAS SCARRED IN. THE GREATER TUBEROSITY WAS DEBRIDED TO BLEEDING BONE. 2 ARTHREX 5.5 SUTURE ANCHORS WERE PLACED IN TO GOOD BONE AND HAD VERY GOOD BITES. ELIOT-CARLOS TYPE REPAIRS WERE DONE TO THE ROTATOR CUFF AND THERE WAS GOOD APPROXIMATION TO THE GREATER TUBEROSITY. THE REPAIR WAS EXCELLENT. THERE WAS NO IMPINGEMENT ON THE REPAIR FROM THE ACROMION WITH RANGE OF MOTION. THE WOUND WAS IRRIGATED WITH COPIOUS AMOUNTS OF ANTIBIOTIC SOLUTION. THE DELTOID MUSCLE WAS REPAIRED WITH #2 FIBER WIRE AND 0 VICRYL SUTURE. THE SUBCUTANEOUS LAYER WAS APPROXIMATED WITH 2-0 VICRYL. THE SKIN WAS APPROXIMATED WITH 3-0 QUIL AND DERMABOND. STERILE DRESSING WAS APPLIED. PATIENT WAS EXTUBATED. Estimated Blood Loss 20 Complications No immediate complications Condition stable Disposition PACU
--- NOTE | 2020-09-19 16:49 | SUR.PHASEI ---
1630; PT HAS INTERMITTENT CONGESTED COUGH. NONPRODUCTIVE. LUNG SOUNDS COARSE BILAT LOWER LOBES. PT STATES I NEED A TREATMENT . RESP EVEN UNLABORED. P,W,Yvette. 1635; DR MORTON NOTIFIED. ALBUTEROL TREATMENT ORDERED.
--- NOTE | 2020-09-19 17:02 | SUR.PHASEI ---
PT LESS COUGHING. STATES SHE FEELS SOMEWHAT BETTER, STILL FEELS CONGESTED IN MY LEFT LUNG . SAO2 88% ON ROOM AIR. O2 2L NC APPLIED PT RESTING QUIETLY.
--- NOTE | 2020-09-19 17:05 | SUR.PHASEI ---
170; UPDATED LELE KNOWLES, PT INTERMITTENT CONGESTED COUGH. O2 2L NC, SAO2 91-93%. PT RESTING QUIETLY. HOB 45 DEGREES. 1703; NOTIFIED DR MORTON OF SAME UPDATE. CONTINUE TO MONITOR PT. DR MORTON STATES IF PT ISNT ABLE TO WEAN OFF O2 SHE MAY NEED TO STAY OVERNIGHT.
--- NOTE | 2020-09-19 17:30 | SUR.PHASEI ---
1715; PT SLEEPING. SOFT SNORE NOTED. HOB AT 45 DEGREES. RESP EVEN UNLABORED. P,W,D. NO COUGHING.
--- NOTE | 2020-09-19 17:42 | SUR.PHASEI ---
PT MORE AWAKE, STATES BREATHING IMPROVED. WANTS TO GO HOME. SAO2 ON 2L NC NOW 95%. TRANSFERRED TO [facility] TO SIT IN RECLINER.
== END 2020-09-19 18:48 | disposition home or self-care (01) ==
PROVIDERS: PCP Physician Assistant; Visit Provider Orthopaedic Surgery
PROC: (CPT 23420; principal; 2020-09-19 14:00)
DX: S46.011A Strain of muscle(s) and tendon(s) of the rotator cuff of right shoulder, initial encounter (principal); X50.0XXA Overexertion from strenuous movement or load, initial encounter; Z79.82 Long term (current) use of aspirin; M19.90 Unspecified osteoarthritis, unspecified site; G89.18 Other acute postprocedural pain; J45.909 Unspecified asthma, uncomplicated; F41.8 Other specified anxiety disorders; Z90.49 Acquired absence of other specified parts of digestive tract; F41.1 Generalized anxiety disorder; K44.9 Diaphragmatic hernia without obstruction or gangrene; E78.00 Pure hypercholesterolemia, unspecified; G47.33 Obstructive sleep apnea (adult) (pediatric); Z87.891 Personal history of nicotine dependence; E66.9 Obesity, unspecified; Z68.35 Body mass index [BMI] 35.0-35.9, adult; F12.90 Cannabis use, unspecified, uncomplicated
CPT/HCPCS: 64415; 23410; 94640; A9270; C1713; J0690; J1100; J2250; J2405; J2704; J3010; J7120

== ENCOUNTER 2020-11-23 08:05 | Outpatient (CLI) | payer OTHER, SELFPAY ==
[2020-11-23 08:23] LABS: Hematocrit 37.8 % (37.0-47.0); Hemoglobin 11.5 g/dL (12.0-15.0); Mean Corpuscular HGB Conc 30.4 g/dl (32-36); Mean Corpuscular Hemoglobin 25.8 pg (26-34); Mean Corpuscular Volume 84.9 fl (80-100); Mean Platelet Volume 8.6 fl (7.4-10.4); Platelet Count Result 258 k/mm3 (150-375); Red Blood Count 4.45 M/mm3 (4.2-5.4); Red Cell Distribution Width 14.9 % (11.5-14.5); White Blood Count 5.7 K/mm3 (4.5-10.0)
[2020-11-23 08:42] LABS: Alanine Aminotransferase 17 U/L (4-35); Albumin Level 4.2 g/dL (3.5-5.1); Alkaline Phosphatase 80 U/L (38-126); Anion Gap 5 mmol/L (8-16); Aspartate Amino Transferase 27 U/L (14-36); Bilirubin,Total 0.5 mg/dL (0.2-1.3); Blood Urea Nitrogen 15 mg/dL (7-17); Calcium 9.2 mg/dL (8.4-10.2); Carbon Dioxide 30 mmol/L (22-30); Chloride 106 mmol/L (98-107); Cholesterol 121 mg/dL (0-200); Estimated Glomerular Filt Rate > 60; Glucose 105 mg/dL (65-110); HDL Direct 37 mg/dL; Potassium 4.5 mmol/L (3.4-5.0); Sodium 141 mmol/L (137-145); Triglycerides 136 mg/dL (<150)
[2020-11-23 08:53] LABS: LDL Cholesterol Direct 50 mg/dL
[2020-11-23 11:19] LABS: Hemoglobin A1C 5.7 % (<5.7)
== END 2020-11-23 08:06 | disposition home or self-care (01) ==
PROVIDERS: PCP Family Medicine; Visit Provider Family Medicine
DX: R73.9 Hyperglycemia, unspecified (principal); E87.5 Hyperkalemia; E78.2 Mixed hyperlipidemia; R42 Dizziness and giddiness; R53.83 Other fatigue; I10 Essential (primary) hypertension
CPT/HCPCS: 36415; 80053; 80061; 83036; 84443; 85027

== ENCOUNTER 2020-11-24 08:50 | Outpatient (CLI) | payer OTHER, SELFPAY ==
[2020-11-24 09:37] LABS: Anion Gap 4 mmol/L (8-16); Blood Urea Nitrogen 15 mg/dL (7-17); Calcium 9.2 mg/dL (8.4-10.2); Carbon Dioxide 31 mmol/L (22-30); Chloride 104 mmol/L (98-107); Estimated Glomerular Filt Rate > 60; Glucose 116 mg/dL (65-110); Potassium 4.4 mmol/L (3.4-5.0); Sodium 139 mmol/L (137-145)
== END 2020-11-24 08:51 | disposition home or self-care (01) ==
LOC: ANHLAB 08:51
PROVIDERS: PCP Family Medicine; Visit Provider Physician Assistant
DX: E87.5 Hyperkalemia (principal)
CPT/HCPCS: 36415; 80048

== ENCOUNTER → 2020-12-04 09:10 | Outpatient (CLI) | payer OTHER, SELFPAY ==
[2020-12-04 18:39] LABS: SARS-CoV-2 RNA PCR Negative
== END ==
PROVIDERS: PCP Family Medicine; Visit Provider Physician Assistant
DX: R05 Cough (principal); Z20.822 Contact with and (suspected) exposure to COVID-19
CPT/HCPCS: C9803; U0003; U0005

== ENCOUNTER 2021-01-03 09:00 | Outpatient (RCR) | payer OTHER, SELFPAY ==
--- NOTE | 2020-10-09 09:38 | PTOPEVAL ---
PHYSICAL THERAPY EVALUATION AND PLAN OF CARE Thank you for referring Kayla Matias to [facility].? The patient is scheduled to be seen for therapy? 2x/week for 5 weeks. Please review, sign, date and return this plan of care ANGELICA. I agree with and certify that the following plan of care is medically necessary. Referring Physician Date Attending Provider: Bert Tabares MD Evaluation Outpatient Past Medical History Neurological History Hx Neurological Disorders No Significant History Cardiovascular History Hx Coronary Artery Disease Yes Hx Hypercholesterolemia Yes: meds Hx Hypertension Yes: meds Hx Other Cardiac Disorders Yes: PATIENT OFFICE REP - DR. NORTON Respiratory History Hx Asthma Yes Hx Sleep Apnea Yes: NO CPAP Gastrointestinal History Hx Cholecystectomy Yes Hx Hemorrhoids Yes: INTERNAL Genitourinary History Hx Genitourinary Disorders No Significant History Musculoskeletal History Hx Arthritis Yes: hands and shoulders Hx Back Pain Yes: BULGING DISC L4-L5 Hx Orthopedic Surgery Yes: RT TRIGGER RELEASE, LT SHOULDER ROTATOR CUFF REPAIR Hx Other Musculoskeletal Disorders Yes: R shoulder pain- tears, non surgical- had PT Hematological History Hx Hematological Disorders No Significant History Endocrine History Hx Endocrine Disorders No Significant History HEENT History Hx HEENT Disorders No Significant History Integumentary History Hx Other Skin Disorders Yes: USED TRIAMCINOLONE ON LEG - SCALY PATCH RESOLVED Reproductive History Hx Section Yes: 3x Hx Hysterectomy Yes: D/T OVARIAN CYSTS Psychosocial History Hx Anxiety Yes Hx Depression Yes Pain History Has Past Pain Affected Your Daily Life Yes: L & R SHOULDER, BACK PAIN History of Long-Term Prescription Pain Yes Medication Use (Opiates) Anesthesia History Hx Anesthesia Reactions No Significant History Other History Hx Other Medical Conditions Yes: vertigo- take meds for Hx Other Surgeries Yes: LEFT BREAST BIOPSY Diagnosis right RCR and biceps tenodesis Onset 09/19/2020 Subjective Information Kayla is here 3 weeks s/p Query Text:As Reported By Patient/ right Rotator cuff repair and Family biceps tenodesis. She is to do PROM for first 6 weeks and then can start AROM. States that pain has been ok. Some days are better than others. Wears the sling when she feels like there is going to be an
--- NOTE | 2020-11-09 08:14 | PTOPEVAL ---
PHYSICAL THERAPY PROGRESS REPORT AND PLAN OF CARE UPDATE Thank you for referring Kayla Matias to [facility].? The patient is scheduled to be seen for therapy? 2x/week for 6 weeks. Please review, sign, date and return this plan of care ANGELICA. I agree with and certify that the following plan of care is medically necessary. Referring Physician Date Attending Provider: Bert Tabares MD Progress Diagnosis right RCR and biceps tenodesis Onset 09/19/2020 Subjective Information Kayla is here 7 weeks s/p Query Text:As Reported By Patient/ right Rotator cuff repair and Family biceps tenodesis. She does have some pain, but is otherwise doing well. Self Report Pain Assessment Right Shoulder(s) Reported Pain Level 1 Pain Frequency Acute,Intermittent Pain Behaviors None Pain Score Pain Score 1: Self Report Interventions Used Interventions Used By Clinicians Exercise Pain Relief Interventions Used By Inactivity/Rest,Medication Patient Upper Extremity Range of Motion Scapular/ Shoulder Range of Motion Right Shoulder Flexion - Active 80 Shoulder Flexion - Passive 150 Shoulder Extension - Passive 70 Shoulder Abduction - Active 150 Shoulder Lateral Rotation - Passive 80 Upper Extremity Muscle Strength Testing Scapular/Shoulder Right Shoulder Flexion Strength 3 Fair Shoulder Abduction Strength 3 Fair Manual Therapy Patient Position Supine Manual Therapy Treatment Passive Stretching,Soft Tissue Mobilization Movement Findings Moderate Hypomobility Treatment Comments - PROM right shoulder Query Text:Include Technique and -STM to pectoralis, upper Result of Technique trapezius, subscap - sidelying gentle scapular -shoulder internal rotation and external rotation at 90deg abduction PT Clinical Summary Kayla is a 59 yo female presenting to outpatient physical therapy 7weeks s/p right RCR with biceps tenodesis. Kayla's rehabilitation is progressing very well. We started on therabands to patient's tolerance. Her ROM without gravity is nearly WFL. She does have an occasional catch feeling in the shoulder that she is able to reduce w
--- NOTE | 2020-11-15 11:58 | PCPTNOTE ---
Patient called & cancelled scheduled appointment this date due to being in [facility] unable to make scheduled appointment. Has rescheduled
[2020-12-26 07:37] VITALS: BP_SYST 150
--- NOTE | 2020-12-26 08:27 | PTOPEVAL ---
PHYSICAL THERAPY PROGRESS REPORT AND PLAN OF CARE UPDATE Thank you for referring Kayla Matias to [facility].? The patient is scheduled to be seen for therapy? 2x/week for 4 weeks. Please review, sign, date and return this plan of care ANGELICA. I agree with and certify that the following plan of care is medically necessary. Referring Physician Date Attending Provider: Bert Tabares MD Progress Diagnosis right RCR and biceps tenodesis Onset 09/19/2020 Subjective Information Doing over all well 3.5 months Query Text:As Reported By Patient/ post-op right rotator cuff Family repair. She states she is having quite a bit of difficulty lifting overhead and sometimes there will be a sharp pain that goes down the side of the arm. Self Report Pain Assessment Right Shoulder(s) Reported Pain Level 4 Pain Description Soreness Pain Frequency Acute,Intermittent Greatest Pain Intensity 8 Pain Aggravating Factors Exercise/Activity Pain Score Pain Score 4: Self Report Additional Pain Score Comments the 8/10 pain is when there is a shooting pain down the arm and lasts about 5 minutes Interventions Used Interventions Used By Clinicians Exercise Pain Relief Interventions Used By Inactivity/Rest,Medication Patient Upper Extremity Range of Motion Scapular/ Shoulder Range of Motion Right Shoulder Flexion - Active 90 Shoulder Flexion - Passive 150 Shoulder Abduction - Active 100 Shoulder Abduction - Passive 150 Shoulder Medial Rotation - Active L2 Query Text:Reach Behind the Back Shoulder Lateral Rotation - Active 75 Scapular/Shoulder Range of Motion after manual therapy: flexion: Comments 123deg, abduction: 111deg Upper Extremity Muscle Strength Testing Scapular/Shoulder Right Shoulder Flexion Strength 3+ Fair + Shoulder Abduction Strength 3+ Fair + PT Clinical Summary Kayla is a 59 yo female presenting to outpatient physical therapy 3.5months s/p right RCR with biceps tenodesis. Kayla's rehabilitation continues to progress well. She continues to lack overhead strength and long lever arm strength. She will benefit from further PT to progress these skills for work activities and househo
--- NOTE | 2021-01-09 11:30 | PCPTNOTE ---
This treatment is being continued on visit number [id number]. Please see documentation on both accounts to view progress. Completed interventions, outcomes, and problems have been marked as Inactive to facilitate the copying of the Care plan routine for recurring accounts.
== END 2021-01-07 23:59 | disposition home or self-care (01) ==
LOC: ANHPT 09:00
PROVIDERS: PCP Family Medicine; Visit Provider Orthopaedic Surgery
DX: Z48.89 Encounter for other specified surgical aftercare (principal); M75.21 Bicipital tendinitis, right shoulder
CPT/HCPCS: 97110; 97140; 97162

== ENCOUNTER 2021-01-12 09:59 | Outpatient (CLI) | payer OTHER, SELFPAY ==
--- NOTE | ~2021-01-12 | DEXA_ITS ---
Bone Density Report Name: Kayla Matias Age: 60 Sex: Female Ethnicity: White Date of : 1960 Indication: postmenopausal; height loss; Referring Provider: MARIPOSA CABRAL Study: Bone densitometry was performed. Exam Date: January 12, 2021 Accession number: [id number] Bone Density: Region BMD T-score Z-score Classification AP Spine (L1-L4) 1.051 0.0 1.4 Normal Femoral Neck (Left) 0.692 -1.4 -0.1 Osteopenia Total Hip (Left) 0.877 -0.5 0.4 Normal Total Hip Bilateral Avg 0.874 -0.6 0.4 Normal Femoral Neck (Right) 0.679 -1.5 -0.3 Osteopenia Total Hip (Right) 0.871 -0.6 0.4 Normal World Health Organization criteria for BMD impression classify patients as: Normal (T-score at or above -1.0), Osteopenia (T-score between -1.0 and -2.5), or Osteoporosis (T-score at or below -2.5). 10-year Fracture Risk(1): Major Osteoporotic Fracture 7.7% Hip Fracture 0.6% Reported Risk Factors: [place] (), Neck BMD=0.679, BMI=32.4 (1) FRAX(R) Version 3.08. Fracture probability calculated for an untreated patient. Fracture probability may be lower if the patient has received treatment. Clinical Information Provided by Patient: Patient maximum height was 61 Menopause Age: 37 Onset of menses at age 11 Number of children 3 Impression: The patient has low bone mass, based on the Right Femoral Neck T-score. The patient has an estimated ten-year risk of hip fracture of 0.6% and an estimated ten-year risk of major fracture of 7.7%, based on the WHO FRAX algorithm. Discussion: BONE DENSITY IS LOW AT ONE OR MORE SKELETAL SITES. This patient's lowest T-score is low at one or more skeletal sites. It meets the World Health Organization's (WHO) criteria for ?low bone mass? (T-score between -1.0 and -2.5). The patient's 10-year risk of fracture as calculated by FRAX is less than the threshold where pharmacological therapy is recommended by the National Osteoporosis Foundation (NOF). However, all treatment decisions require clinical judgment and consideration of individual patient factors, including patient preferences, comorbidities, previous drug use, risk factors not captured in the FRAX model (e.g., frailty, falls, vitamin D deficiency, increased bone turnover, interval significant decline in bone density) and possible under or overestimation of fracture risk by FRAX. The patient should follow a healthful lifestyle (good nutrition with adequate calcium and vitamin D, and appropriate weight-bearing exercise). Follow-Up: Consider repeating this study in 2 to 3 years to reassess this patient's status, or sooner if there is some new clinical indication. Reported by: SHIRA on 01/12/2021 10:35:00 AM. Reviewed, dictated and finalized at location [facility]
== END 2021-01-12 10:00 | disposition home or self-care (01) ==
LOC: ANHIMG 10:02
PROVIDERS: PCP Family Medicine Sports Medicine; Visit Provider Family Medicine
DX: Z78.0 Asymptomatic menopausal state (principal); M85.852 Other specified disorders of bone density and structure, left thigh; M85.851 Other specified disorders of bone density and structure, right thigh
CPT/HCPCS: 77080

== ENCOUNTER 2021-01-15 12:58 | Outpatient (RCR) | payer OTHER, SELFPAY | END 2021-04-09 13:50 | disposition home or self-care (01) | LOC: ANHDMC 12:58 | PROVIDERS: PCP Family Medicine Sports Medicine; Visit Provider Physician Assistant | DX: E11.65 Type 2 diabetes mellitus with hyperglycemia (principal); Z71.89 Other specified counseling | CPT/HCPCS: G0108 ==

== ENCOUNTER 2021-03-05 08:55 | Emergency (ER) | payer OTHER, SELFPAY ==
--- NOTE | ~2021-03-05 | CT_ITS ---
EXAMINATION: CT brain wo con DATE: 03/05/2021 10:00 INDICATION: Altered mental status. TECHNIQUE: Computed tomography (CT) of the head was performed without intravenous contrast. The mA wa s adjusted according to patient size. Iterative reconstruction technique was employed. The dose-lengt h product was 605.33 mGy-cm. COMPARISON: Head CT 06/01/2019 FINDINGS: There is no intracranial hemorrhage, acute infarction, or abnormal intracranial mass lesion . The ventricles are normal in size. The orbits are normal. There is mild mucosal thickening in the p aranasal sinuses. The mastoid air cells are normal. IMPRESSION: 1. Normal brain. Reviewed, dictated and finalized at location A. EWATER MANAGER IMPRESSION: 1. Normal brain.
--- NOTE | ~2021-03-05 | XR_ITS ---
EXAMINATION: XR chest 1V portable DATE: 03/05/2021 09:47 INDICATION: Transient alteration of awareness. Seizure. TECHNIQUE: frontal view of the chest was obtained. COMPARISON: Chest radiograph dated 11/25/2019 FINDINGS: The lungs remain clear with no focal airspace opacities, pulmonary edema, pleural effusion or pneumot horax. The cardiomediastinal silhouette is normal. Cholecystectomy clips in right upper quadrant. IMPRESSION: 1. No acute cardiopulmonary disease. Reviewed, dictated and finalized at location A. HANDISE DIRECTOR
[2021-03-05 08:56] VITALS: BP 141/79; PULSE 62; RESP 14; TEMP 36.5; O2SAT 99
--- NOTE | 2021-03-05 09:03 | ECG_ITS ---
Measurements Intervals [place] Rate: 59 P: 60 IL: 147 QRS: 22 QRSD: 96 T: 48 QT: 408 QTc: 407 Interpretive Statements SINUS BRADYCARDIA LOW QRS VOLTAGE IN PRECORDIAL LEADS MINIMAL Q WAVES- INFERIOR LEADS BASELINE ARTIFACT- II, V3-V6 BORDERLINE ECG Electronically Signed On 03-05-2021 9:59:10 POLICY SERVICES REPRESENTATIVE by Kirt Ruiz D.O.
[2021-03-05 09:09] LABS: Glucose Point of Care 91 mg/dl (65-105)
[2021-03-05 10:14] LABS: Basophils Percent Auto 0.5 % (0.2-1.2); Eosinophils Percent Auto 0.5 % (0-4.4); Hematocrit 33.7 % (37.0-47.0); Hemoglobin 10.4 g/dL (12.0-15.0); Immature Granulocyte Absolute 0.01 K/mm3 (0.00-0.031); Immature Granulocyte Percent A 0.2 % (0-0.5); Lymphocytes Absolute Auto 2.21 K/mm3 (0.9-3.2); Lymphocytes Percent Auto 36.3 % (18.3-44.2); Mean Corpuscular HGB Conc 30.9 g/dl (32-36); Mean Corpuscular Hemoglobin 25.6 pg (26-34); Mean Platelet Volume 9.3 fl (7.4-10.4); Monocytes Absolute Auto 0.6 K/mm3 (0.1-0.6); Monocytes Percent Auto 9.7 % (2.6-8.5); Neutrophils Absolute Auto 3.2 K/mm3 (1.3-6.7); Neutrophils Percent Auto 52.8 % (45.5-73.1); Platelet Count Result 304 k/mm3 (150-375); Red Blood Count 4.06 M/mm3 (4.2-5.4); White Blood Count 6.1 K/mm3 (4.5-10.0)
[2021-03-05 10:25] LABS: Alanine Aminotransferase 19 U/L (4-35); Albumin Level 4.1 g/dL (3.5-5.1); Alkaline Phosphatase 71 U/L (38-126); Anion Gap 6 mmol/L (8-16); Aspartate Amino Transferase 37 U/L (14-36); Bilirubin,Total 0.2 mg/dL (0.2-1.3); Blood Urea Nitrogen 16 mg/dL (7-17); Calcium 8.9 mg/dL (8.4-10.2); Carbon Dioxide 29 mmol/L (22-30); Chloride 102 mmol/L (98-107); Estimated CRCL calculation 53 ml/min; Estimated Glomerular Filt Rate > 60; Glucose 91 mg/dL (65-110); Potassium 4.4 mmol/L (3.4-5.0); Sodium 137 mmol/L (137-145)
[2021-03-05 10:34] LABS: Add Urine Microscopic? YES; Appearance Urine Clear (Clear); Bilirubin Urine Negative (Negative); Blood Urine Negative (Negative); Color Urine Yellow (Yellow); Glucose Urine UA Negative (Negative); Ketones Urine Trace mg/dL (Negative); Leukocyte Esterase Ur Negative LEU/UL (Negative); Mucus Urine Rare /lpf; Nitrate Urine Negative (Negative); Protein Urine Negative (Negative); RBC Urine 0-2 /hpf (0-2); Specific Grav Ur 1.016 (1.001-1.035); Squamous Epithelial Cell Urine Many /hpf (Few); Urobilinogen Urine Negative mg/dL (<2.0); WBC Urine 0-3 /hpf
--- NOTE | 2021-03-05 10:34 | ED.GENADULT ---
HPI - General Adult General Chief complaint: Seizure Stated complaint: Seizure Time Seen by Provider: 03/05/21 09:36 Source: patient and RN notes reviewed History of Present Illness HPI narrative: Patient is a 60 y./o female brought in for unresponsiveness. 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 She was reportedly having staring spells. 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 She was drooling from her mouth. She has no recollection of what happened. She currently complains of headache. She states that she has history of seizure and she is on Depakote currently. Related Data Home Medications Medication Instructions Recorded Confirmed aspirin 81 mg tablet,delayed 81 mg PO DAILY 01/28/19 01/22/21 release dimenhydrinate 50 mg tablet 50 mg PO Q4-6H PRN 01/28/19 01/22/21 alprazolam 0.25 mg tablet 0.25 mg PO QID PRN tablet 08/09/19 01/22/21 escitalopram oxalate 20 mg tablet 20 mg PO DAILY 08/09/19 01/22/21 rosuvastatin 40 mg tablet 40 mg PO DAILY 11/21/20 01/22/21 Allergies Allergy/AdvReac Type Severity Reaction Status Date / Time Penicillins AdvReac Mild rash- Verified 01/22/21 13:45 occured as child Review of Systems Constitutional: Constitutional: Denies chills, Denies fever(s), Reports headache(s) and Denies weakness Eyes: Eyes: Denies blurry vision ENT: Reports headache(s) and Denies neck pain Cardiovascular: Cardiovascular: Denies chest pain and Denies dyspnea Respiratory: Respiratory: Denies cough and Denies dyspnea Gastrointestinal: Gastrointestinal: Denies abdominal pain, Denies diarrhea, Denies nausea and Denies vomiting Genitourinary: Genitourinary: Denies hematuria and Denies dysuria Musculoskeletal: Musculoskeletal: Denies back pain and Denies neck pain Neurologic: Reports as per HPI, Reports headache(s) and Denies weakness [facility] Past Medical History Medical History Anemia Anxiety Arthritis Asthma Bilateral carpal tunnel syndrome BMI 33.0-33.9,adult Deficient knowledge of caesarean delivery Depression Diabetes FH: cholecystectomy Generalized anxiety disorder GI bleed Glaucoma Hiatal hernia Hypercholesterolemia Hypertension Hyperthyroidism Impingement syndrome of left shoulder Lightheadedness VIDAL (obstructive sleep apnea) Osteoarthritis of both hands Pneumonia Primary hypertension Right shoulder pain Rotator cuff arthropathy of left shoulder Rotator cuff tear Sleep apnea Upper back pain Urine ketones Vertigo Weight gain Surgical History Surgical History H/O: hysterectomy History of bladder surgery History of rotator cuff surgery (~2020) Hx of tonsillectomy Family History Family History Other Diabetes mellitus Family history of Alzheimer's disease Family history of cardiovascular disease Family history of coronary artery disease Hypertension Social History Social History Smoking packs per day: 0.5 Smoking cigarettes per day: 10.0 Years smoked: 10 Smoking pack-years: 5.00 Smoking status: Current every day smoker Tobacco type: cigarettes Second hand tobacco smoke exposure: No Alcohol intake: never Substance use: current Substance use type: marijuana Other substance usage details: EDIBLES Gender identity (if verbalized by the patient): Female Spiritual care concerns: No Exam Const: General: no acute distress and well developed Orientation/consciousness: oriented to person, oriented to place, oriented to time and patient oriented x3 HENMT: Head: normocephalic Ears: external ears normal General nose exam: Normal external nose present Eyes: General: appearance normal, both eyes and all related structures Conjunctivae: conjunctivae normal Neck: Neck: normal vi
[2021-03-05 10:43] LABS: Amphetamine Screen Urine Negative (Negative); Barbiturate Screen Urine Negative (Negative); Benzodiazepines Screen Urine Positive (Negative); Cannabinoid Screen Urine Positive (Negative); Cocaine Screen Urine Negative (Negative); Methadone Screen Urine Negative (Negative); Opiate Screen Urine Negative (Negative); Phencyclidine Screen Urine Negative (Negative)
[2021-03-05 11:39] LABS: Valproic Acid 69.2 ug/mL (50-120)
[2021-03-05 12:52] VITALS: BP 142/79; PULSE 69; RESP 18
== END 2021-03-05 12:54 | disposition home or self-care (01) ==
PROVIDERS: Emergency Provider Emergency Medicine; PCP Family Medicine Sports Medicine
DX: R56.9 Unspecified convulsions (principal); J45.909 Unspecified asthma, uncomplicated; E11.9 Type 2 diabetes mellitus without complications; E78.00 Pure hypercholesterolemia, unspecified; H40.9 Unspecified glaucoma; E05.90 Thyrotoxicosis, unspecified without thyrotoxic crisis or storm; D64.9 Anemia, unspecified; F41.1 Generalized anxiety disorder; F32.A Depression, unspecified; G47.33 Obstructive sleep apnea (adult) (pediatric); M19.042 Primary osteoarthritis, left hand; M19.041 Primary osteoarthritis, right hand; F17.210 Nicotine dependence, cigarettes, uncomplicated; Z87.01 Personal history of pneumonia (recurrent); Z79.82 Long term (current) use of aspirin; R00.1 Bradycardia, unspecified; R94.31 Abnormal electrocardiogram [ECG] [EKG]
CPT/HCPCS: 36415; 70450; 71045; 80053; 80164; 80307; 81001; 82948; 85025; 93005; 99284

== ENCOUNTER 2021-04-03 12:30 | Outpatient (RCR) | payer OTHER, SELFPAY ==
[2021-01-08 00:04] VITALS: BP_SYST 150
--- NOTE | 2021-01-09 09:36 | PCPTNOTE ---
Patient did not show up for scheduled appointment this date; called and left voicemail for reminder on next appointment 01/11 @ 9:45am.
--- NOTE | 2021-01-09 11:30 | PCPTNOTE ---
The treatment documented on this account is a continuation of the treatment documented on visit number [id number]. Please see documentation on both accounts to view progress. The Plan of Care has been transitioned and updated within the new V#. I have addressed and agree with the discipline specific Problems, Interventions, and Goals for the current certification period. Completed interventions, outcomes, and problems have been marked as Inactive to facilitate the copying of the Care plan routine for recurring accounts.
--- NOTE | 2021-01-16 09:36 | PCPTNOTE ---
Patient called & cancelled scheduled appointment this date due to not feeling well.
--- NOTE | 2021-01-18 10:50 | PCPTNOTE ---
Patient called & cancelled scheduled appointment this date due to having blood pressure issues and needing to go see the doctor. Requested that if we have a cancel or no show to call her and she will make up the appt.
--- NOTE | 2021-02-05 13:47 | PTOPEVAL ---
PHYSICAL THERAPY PROGRESS REPORT Thank you for referring Kayla Matias to [facility].? The patient is scheduled to be seen for therapy? 2x/week for 4 weeks. Please review, sign, date and return this plan of care ANGELICA. I agree with and certify that the following plan of care is medically necessary. Referring Physician Date Attending Provider: Bert Tabares MD Progress Diagnosis right RCR and biceps tenodesis Onset 09/19/2020 Subjective Information Kayla is here today for Query Text:As Reported By Patient/ strengthening of the right Family shoulder s/p right rotator cuff repair. States that she does ok just lifting the arm up but lifting heavy items is much more painful and diffuclt Self Report Pain Assessment Right Shoulder(s) Reported Pain Level 0 Pain Description Aching Lowest Pain Intensity 1 Greatest Pain Intensity 7 Pain Score Pain Score 0: Self Report Interventions Used Interventions Used By Clinicians Exercise,Joint Mobilization Pain Relief Interventions Used By Inactivity/Rest Patient Upper Extremity Range of Motion Scapular/ Shoulder Range of Motion Right Shoulder Flexion - Active 145 Shoulder Abduction - Active 135 Shoulder Medial Rotation - Active L3 Query Text:Reach Behind the Back Shoulder Lateral Rotation - Passive 65 Scapular/Shoulder Range of Motion when performing ROM Comments bilaterally the technique is well preserved, but when performing unilateral ROM, she starts to guard and shoulder hike on the right causing an impingement moment. Upper Extremity Muscle Strength Testing Scapular/Shoulder Right Shoulder Flexion Strength 3 Fair Shoulder Abduction Strength 3 Fair Shoulder Medial Rotation Strength 4- Good - Shoulder Lateral Rotation Strength 3+ Fair + Palpation Assessment Palpation Palpation mild trigger points noted to right upper trapezius and infraspinatus General Exercise General Exercises Side Right Exercise Location shoulder Exercise Type Active,Resistive,Stabilization ,Stretching Exercise Description -s/l shoulder external Query Text:Record Sets, Reps, rotation 2# x15 Resistance, and Position -bilateral scaption 0-1# at home, stood in front of mirror to watch for and inhibit
--- NOTE | 2021-02-26 14:27 | PCPTNOTE ---
Patient called & cancelled scheduled appointment this date due to not feeling well with having a low grade fever this morning.
--- NOTE | 2021-03-06 16:08 | PCPTNOTE ---
Patient called & cancelled scheduled appointment this date due to needing to get an EEG. She rescheduled this appointment.
--- NOTE | 2021-03-15 13:46 | PTOPEVAL ---
PHYSICAL THERAPY PROGRESS REPORT Thank you for referring Kayla Matias to [facility].? The patient is scheduled to be seen for therapy? 1x/week for 5 weeks. Please review, sign, date and return this plan of care ANGELICA. I agree with and certify that the following plan of care is medically necessary. Referring Physician Date Attending Provider: Bert Tabares MD Progress Diagnosis right RCR and biceps tenodesis Onset 09/19/2020 Subjective Information Kayla is here today for Query Text:As Reported By Patient/ strengthening of the right Family shoulder s/p right rotator cuff repair. States that the shoulder is doing ok. Reports that she had a Grand mal seizure and she is now off work for [address] Her medication was increased. Self Report Pain Assessment Right Shoulder(s) Reported Pain Level 1 Pain Description Aching Pain Score Pain Score 1: Self Report Additional Pain Score Comments . Interventions Used Interventions Used By Clinicians Exercise Pain Relief Interventions Used By Inactivity/Rest Patient Upper Extremity Range of Motion Scapular/ Shoulder Range of Motion Right Shoulder Flexion - Active 145 Shoulder Abduction - Active 135 Shoulder Medial Rotation - Active L1 Query Text:Reach Behind the Back Shoulder Lateral Rotation - Passive 70 Scapular/Shoulder Range of Motion discussion of maintaining Comments appropriate posture during ROM to promote optimal mechanics; Upper Extremity Muscle Strength Testing Scapular/Shoulder Right Shoulder Flexion Strength 3 Fair Shoulder Abduction Strength 3 Fair Shoulder Medial Rotation Strength 4- Good - Shoulder Lateral Rotation Strength 3+ Fair + Palpation Assessment Palpation Palpation good tissue quality. General Exercise General Exercises Side Right Exercise Location shoulder Exercise Type Active,Resistive,Stabilization Exercise Description - prone press up with 3# Query Text:Record Sets, Reps, - lifting 3# from table to Resistance, and Position shoulder height - shoulder hiking and poor quality motion ; -scaption, overhead press up, wall angels, PNF flexion green band, flexion green band all added to HEP Position Side
--- NOTE | 2021-03-21 13:16 | PCPTNOTE ---
Patient did not show up for scheduled appointment this date.
--- NOTE | 2021-04-10 09:31 | PCPTNOTE ---
This treatment is being continued on visit number [id number]. Please see documentation on both accounts to view progress. Completed interventions, outcomes, and problems have been marked as Inactive to facilitate the copying of the Care plan routine for recurring accounts.
== END 2021-04-09 23:59 | disposition home or self-care (01) ==
LOC: ANHPT 12:30
PROVIDERS: PCP Family Medicine; Visit Provider Orthopaedic Surgery
DX: Z48.89 Encounter for other specified surgical aftercare (principal); M75.21 Bicipital tendinitis, right shoulder
CPT/HCPCS: 97110

== ENCOUNTER 2021-06-11 08:30 | Outpatient (RCR) | payer OTHER, MEDICAID, SELFPAY ==
[2021-04-10 00:03] VITALS: BP_SYST 150
--- NOTE | 2021-04-10 09:32 | PCPTNOTE ---
The treatment documented on this account is a continuation of the treatment documented on visit number [id number]. Please see documentation on both accounts to view progress. The Plan of Care has been transitioned and updated within the new V#. I have addressed and agree with the discipline specific Problems, Interventions, and Goals for the current certification period. Completed interventions, outcomes, and problems have been marked as Inactive to facilitate the copying of the Care plan routine for recurring accounts.
[2021-04-17 10:59] VITALS: BP_SYST 155
--- NOTE | 2021-04-17 11:57 | PTOPEVAL ---
PHYSICAL THERAPY PROGRESS REPORT Thank you for referring Kayla Matias to [facility].? The patient is scheduled to be seen for therapy? 2x/week for 12 weeks. Please review, sign, date and return this plan of care ANGELICA. I agree with and certify that the following plan of care is medically necessary. Referring Physician Date Attending Provider: Bert Tabares MD Diagnosis right RCR and biceps tenodesis Onset 09/19/2020 Subjective Information Kayla reports today that she Query Text:As Reported By Patient/ Dr. Woodall on 03/26/21 and he Family ordered more therapy for 2-3x/ wk for 12 weeks. She has continued to have seizures. continues to be off of work. States that her doctors are trying to get her on disability due to the seizures. Pain Assessment Timing of Pain Assessment Timing of Pain Assessment Assessment Pain Scale Pain Scale Used Numeric (1 - 10) Self Report Pain Assessment Right Shoulder(s) Reported Pain Level 2 Pain Description Soreness,Tightness Pain Score Pain Score 2: Self Report Interventions Used Interventions Used By Clinicians Exercise Upper Extremity Range of Motion Scapular/ Shoulder Range of Motion Right Shoulder Flexion - Active 100 Shoulder Flexion - Passive 155 Shoulder Abduction - Active 125 Shoulder Abduction - Passive 155 Shoulder Medial Rotation - Active L5 Query Text:Reach Behind the Back Upper Extremity Muscle Strength Testing Scapular/Shoulder Right Shoulder Flexion Strength 3- Fair - Shoulder Abduction Strength 3+ Fair + Shoulder Medial Rotation Strength 3+ Fair + Shoulder Lateral Rotation Strength 3+ Fair + Posture Posture Sitting Position Thoracic Spine Posture Increased Kyphosis Shoulder Posture (L) Rounded,(R) Rounded,(L) Forward,(R) Forward Scapula Posture (L) Protracted,(R) Protracted Palpation does have significantly increased tension throughout right rotator cuff muscles and throughout scapular and cervical muscles. PT Clinical Summary Kayla continues to present with limited right shoulder ROM and strength without significant change compared to a month ago. She saw her surgeon on 03/26/21 who recommend 2-3x/wk therapy for
--- NOTE | 2021-05-01 10:11 | PCPTNOTE ---
Patient called & cancelled scheduled appointment this date due to not feeling well.
[2021-05-15 11:11] VITALS: BP_SYST 155
--- NOTE | 2021-05-15 11:58 | PTOPEVAL ---
PHYSICAL THERAPY PROGRESS REPORT and PLAN OF CARE UPDATE Thank you for referring Kayla Matias to [facility] [place].? The patient is scheduled to be seen for therapy?2x/week for 4 weeks. Please review, sign, date and return this plan of care ANGELICA. I agree with and certify that the following plan of care is medically necessary. Referring Physician Date Attending Provider: Bert Tabares MD Progress Diagnosis right RCR and biceps tenodesis Onset 09/19/2020 Subjective Information Kayla reports today that she Query Text:As Reported By Patient/ Dr. Woodall on 03/26/21 and he Family ordered more therapy for 2-3x/ wk for 12 weeks. States that she is doing ok. The arm is sore sometimes. Functional activities: can put on a bra, wash her hair, but taking a shirt off because her arm gets stuck. Kayla does continue to have other active medical comorbidities including seizures, depression, anxiety, high blood pressure that she is actively reviewing and seeking treatment with medical doctors. Self Report Pain Assessment Right Shoulder(s) Reported Pain Level 2 Pain Description Soreness,Tightness Greatest Pain Intensity 4 Pain Score Pain Score 2: Self Report Interventions Used Interventions Used By Clinicians Exercise,Ultrasound Upper Extremity Range of Motion Scapular/ Shoulder Range of Motion Right Shoulder Flexion - Active 100 Shoulder Flexion - Passive 155 Shoulder Abduction - Active 125 Shoulder Abduction - Passive 155 Shoulder Medial Rotation - Active L1 Query Text:Reach Behind the Back Shoulder Lateral Rotation - Active 72 Upper Extremity Muscle Strength Testing Scapular/Shoulder Right Shoulder Flexion Strength 3 Fair Shoulder Abduction Strength 3+ Fair + Shoulder Medial Rotation Strength 4 Good Shoulder Lateral Rotation Strength 4 Good PT Clinical Summary Kayla continues to present with limited right shoulder ROM and strength without significant change compared to a month ago. She saw her surgeon on 03/26/21 who recommend 2-3x/wk therapy for 12 more weeks. We will continue this plan until she
--- NOTE | 2021-05-17 08:06 | PCPTNOTE ---
Patient called & cancelled scheduled appointment this date due to bad weather.
--- NOTE | 2021-05-23 09:07 | PCPTNOTE ---
Patient called & cancelled scheduled appointment this date due to being sick.
--- NOTE | 2021-05-30 09:36 | PCPTNOTE ---
Patient called & cancelled scheduled appointment this date due to not having a ride.
[2021-06-11 08:36] VITALS: BP_SYST 155
--- NOTE | 2021-06-11 09:26 | PTOPEVAL ---
PHYSICAL THERAPY DISCHARGE NOTE Thank you for referring Kayla Matias to [facility].? Please review, sign, date and return this plan of care ANGELICA. I agree with and certify that the following plan of care is medically necessary. Referring Physician Date Attending Provider: Bert Tabares MD Discharge Diagnosis right RCR and biceps tenodesis Onset 09/19/2020 Subjective Information 9 month s/p right RCR and Query Text:As Reported By Patient/ biceps tenodesis. She reports Family that she has some pain in the shoulder when she reaches up - Pain Assessment Timing of Pain Assessment Timing of Pain Assessment Assessment Self Report Self Report Pain Level 0 Pain Score Pain Score 0: Self Report Upper Extremity Range of Motion Scapular/ Shoulder Range of Motion Right Shoulder Flexion - Active 100 Shoulder Flexion - Passive 155 Shoulder Abduction - Active 150 Shoulder Abduction - Passive 155 Shoulder Medial Rotation - Active T12 Query Text:Reach Behind the Back Shoulder Lateral Rotation - Active 72 Shoulder Lateral Rotation - Active T2 Query Text:Reach Behind the Head Scapular/Shoulder Range of Motion able to perform full ROM of Comments right shoulder flexion in supine without pain Upper Extremity Muscle Strength Testing Scapular/Shoulder Right Shoulder Flexion Strength 3 Fair Shoulder Abduction Strength 3+ Fair + Shoulder Medial Rotation Strength 4+ Good + Shoulder Lateral Rotation Strength 4+ Good + Palpation Assessment Palpation Palpation non-tender RTC muscles and normal tension in muscles General Exercise General Exercises Side Right Exercise Location shoulder Exercise Type Active,Resistive,Stabilization ,Stretching Exercise Description neuromuscular re-education of Query Text:Record Sets, Reps, scapulo-humeral rhythm, Resistance, and Position increasing activation of supraspinatus - in standing in front of mirror with tactile cueing and eccentric scaption; in sidelying with 1#, 2#, and 3# to determine which weight is appropriate for HEP - scapular A/A motion and inhibiting upper trapezius Position Against [place] Exercise Comments . Rehab Teaching Rehab Teaching Teaching Topic Rehab Teaching Topic Components Home Program As Pertains To
== END 2021-06-11 17:10 | disposition home or self-care (01) ==
LOC: ANHPT 08:30
PROVIDERS: PCP Family Medicine Sports Medicine; Visit Provider Orthopaedic Surgery
DX: Z48.89 Encounter for other specified surgical aftercare (principal); M75.21 Bicipital tendinitis, right shoulder
CPT/HCPCS: 97035; 97110; 97112; 97140

== ENCOUNTER 2021-09-22 08:56 | Emergency (ER) | payer OTHER, MEDICAID, SELFPAY ==
--- NOTE | ~2021-09-22 | CT_ITS ---
EXAMINATION: CT brain wo con DATE: 09/22/2021 10:23 INDICATION: Reoccurring frontal headache. Seizures. Weakness. TECHNIQUE: Computed tomography (CT) of the head was performed without intravenous contrast. The mA wa s adjusted according to patient size. Iterative reconstruction technique was employed. Exam dose: 60 5.33 mGy-cm total exam DLP. COMPARISON: 03/05/2021 CT brain FINDINGS: No intracranial mass lesion or hemorrhage or cerebrovascular accident. No midline shift or mass effect. Normal ventricular size. No subdural or epidural hematoma. Bilateral carotid siphon internal carotid artery calcifications. The mastoid air cells and included paranasal sinuses are unremarkable. No fracture or bone destruction of the cranial vault. IMPRESSION: Cerebral atherosclerosis No acute intracranial finding Reviewed, dictated and finalized at Location A. Reviewed, dictated and finalized at location A.
[2021-09-22 09:09] VITALS: BP 146/99; PULSE 73; RESP 18; TEMP 36.6; O2SAT 100
--- NOTE | 2021-09-22 09:10 | ECG_ITS ---
Measurements Intervals [place] Rate: 71 P: 71 FL: 150 QRS: 47 QRSD: 88 T: 62 QT: 372 QTc: 404 Interpretive Statements SINUS RHYTHM BASELINE ARTIFACT- V4-V6 NORMAL ECG Electronically Signed On 09-22-2021 18:19:27 CDT by Kirt Ruiz D.O.
[2021-09-22 09:30] LABS: Alanine Aminotransferase 24 U/L (6-35); Albumin Level 4.5 g/dL (3.5-5.1); Alkaline Phosphatase 95 U/L (38-126); Anion Gap 8 mmol/L (8-16); Aspartate Amino Transferase 30 U/L (14-36); Bilirubin,Total 0.8 mg/dL (0.2-1.3); Blood Urea Nitrogen 19 mg/dL (7-17); Carbon Dioxide 22 mmol/L (22-30); Chloride 108 mmol/L (98-107); Estimated CRCL calculation 65 ml/min; Estimated Glomerular Filt Rate > 60; Glucose 148 mg/dL (65-110); Potassium 4.2 mmol/L (3.4-5.0); Sodium 138 mmol/L (137-145)
[2021-09-22 09:35] LABS: Basophils Percent Auto 0.4 % (0.2-1.2); Hematocrit 41.7 % (37.0-47.0); Immature Granulocyte Absolute 0.02 K/mm3 (0.00-0.031); Immature Granulocyte Percent A 0.2 % (0-0.5); Lymphocytes Absolute Auto 1.74 K/mm3 (0.9-3.2); Lymphocytes Percent Auto 20.6 % (18.3-44.2); Mean Corpuscular HGB Conc 31.2 g/dl (32-36); Mean Corpuscular Hemoglobin 26.6 pg (26-34); Mean Corpuscular Volume 85.3 fl (80-100); Mean Platelet Volume 8.5 fl (7.4-10.4); Monocytes Absolute Auto 0.5 K/mm3 (0.1-0.6); Monocytes Percent Auto 6.4 % (2.6-8.5); Neutrophils Absolute Auto 6.1 K/mm3 (1.3-6.7); Neutrophils Percent Auto 72.4 % (45.5-73.1); Platelet Count Result 387 k/mm3 (150-375); Red Blood Count 4.89 M/mm3 (4.2-5.4); Red Cell Distribution Width 16.9 % (11.5-14.5); White Blood Count 8.5 K/mm3 (4.5-10.0)
--- NOTE | 2021-09-22 09:54 | ED.WEAKNESS ---
HPI - Weakness General Chief complaint: Weakness Stated complaint: high blood pressure Time Seen by Provider: 09/22/21 09:53 History of Present Illness HPI Narrative: 60-year-old female here for evaluation of seizure-like activity over the past week. She states during these episodes she will feel weak, fatigued, she will have visual changes, and feel very shaky. Reports chest tightness in the past with these episodes, none today. Patient states these episodes are identical to past pseudoseizures. Patient was diagnosed with pseudoseizures in 2019 for which she underwent a full neurologic evaluation at [facility] by Dr. Nadege Oliver with MRIs and EEGs. She has been compliant with her medications for this; used to take Depakote; now takes gabapentin. States that these episodes have become more frequent in nature and have occurred every day for the past 7 days. States that she has not contacted her neurologist for the increased frequency of episodes. Has also seen a psychiatrist in the past. Smokes marijuana but denies other drug use. Denies shortness of breath, fevers, abdominal pain, nausea, vomiting, diarrhea, constipation, neck stiffness, headache. Related Data Home Medications Medication Instructions Recorded Confirmed aspirin 81 mg tablet,delayed 81 mg PO DAILY 01/28/19 08/29/21 release (Adult Aspirin Regimen) dimenhydrinate 50 mg tablet 50 mg PO Q4-6H PRN Motion Sickness 01/28/19 08/29/21 alprazolam 0.25 mg tablet 0.25 mg PO QID PRN anxiety 08/09/19 08/29/21 escitalopram oxalate 20 mg tablet 20 mg PO DAILY 08/09/19 08/29/21 (Lexapro) rosuvastatin 40 mg tablet 40 mg PO DAILY 11/21/20 08/29/21 Allergies Allergy/AdvReac Type Severity Reaction Status Date / Time Penicillins AdvReac Mild rash- Verified 08/13/21 11:42 occured as child Review of Systems Review of Systems: Gen: Denies fevers or chills Eyes: Denies eye pain or visual change ENT: Denies congestion Respiratory: Denies shortness of breath or cough CV: Denies palpitations GI: Denies abdominal pain nausea, emesis or diarrhea denies burning, urgency, frequency or hematuria Musculoskeletal: Denies back pain or muscle pain Neuro: Reports seizure-like activity. Skin: Denies rash Except as documented, all other systems reviewed and negative [facility] Past Medical History Medical History Anemia Anxiety Arthritis Asthma Bilateral carpal tunnel syndrome BMI 33.0-33.9,adult Deficient knowledge of caesarean delivery Depression Diabetes FH: cholecystectomy Generalized anxiety disorder GI bleed Glaucoma Hiatal hernia Hypercholesterolemia Hypertension Hyperthyroidism Impingement syndrome of left shoulder Lightheadedness VIDAL (obstructive sleep apnea) Osteoarthritis of both hands Pneumonia Primary hypertension Right shoulder pain Rotator cuff arthropathy of left shoulder Rotator cuff tear Sleep apnea Upper back pain Urine ketones Vertigo Weight gain Surgical History Surgical History H/O: hysterectomy History of bladder surgery History of rotator cuff surgery (~2020) Hx of tonsillectomy Family History Family History Other Diabetes mellitus Family history of Alzheimer's disease Family history of cardiovascular disease Family history of coronary artery disease Hypertension Social History Social History Smoking packs per day: 0.5 Smoking cigarettes per day: 10.0 Years smoked: 10 Smoking pack-years: 5.00 Tobacco type: cigarettes Second hand tobacco smoke exposure: No Alcohol intake: never Substance use: current Substance use type: marijuana Other substance usage details: EDIBLES Gender identity (if verbalized by the patient): Female Spiritual care concerns: No Exam
--- NOTE | 2021-09-22 09:56 | PC.NURSE ---
upon calling patient to take patient to exam room 14. Patient was getting up from laying position on chairs in when she gently guided herself down to the floor. pt got into a face down position and was not responding to staff. patient was rolled over by RN. patient had eyes closed and was not opening them to verbal stimuli. light sternal rub was performed. patient sat up stating where is she and she doesn't know who she is. patient was assisted by this RN and other ER staff to . patient was able to stand by herself. patient taken to exam room 14, where patient got out of WC on her own, walked over to stretcher. Patient demanding us call her family in dietary and for warm blankets. patient placed on monitor. patient states that she came in for seizures and vomiting for the last week or so. pt states she [facility], but states she came here due this hospital being closer. patient states that she was prescribed a ton of medications but has not helped. pt states she fired her other primary and has not seen one since. patient is alert and orientated. pt moves all extremities equally.
[2021-09-22 10:28] LABS: Phosphorus 1.7 mg/dL (2.5-4.5)
[2021-09-22 10:40] LABS: Troponin I < 0.012 ng/mL (0.000-0.034)
[2021-09-22 10:41] LABS: Appearance Urine Clear (Clear); Bilirubin Urine Negative (Negative); Blood Urine Negative (Negative); Color Urine Yellow (Yellow); Glucose Urine UA Negative (Negative); Ketones Urine 2+ mg/dL (Negative); Leukocyte Esterase Ur Negative LEU/UL (Negative); Nitrate Urine Negative (Negative); Protein Urine 1+ mg/dL (Negative); Specific Grav Ur 1.015 (1.001-1.035); pH Urine 8.5 (5.0-9.0)
[2021-09-22 10:48] LABS: Mucus Urine Rare /lpf; RBC Urine 0-2 /hpf (0-2); Squamous Epithelial Cell Urine Occasional /hpf (Few); WBC Urine 0-3 /hpf
[2021-09-22 10:52] LABS: Lactic Acid Reflex 1.7 mmol/L (0.7-2.0)
[2021-09-22 10:54] LABS: Add Urine Microscopic? YES
[2021-09-22 10:56] LABS: Amphetamine Screen Urine Negative (Negative); Barbiturate Screen Urine Negative (Negative); Benzodiazepines Screen Urine Positive (Negative); Cannabinoid Screen Urine Positive (Negative); Cocaine Screen Urine Negative (Negative); Methadone Screen Urine Negative (Negative); Opiate Screen Urine Negative (Negative); Phencyclidine Screen Urine Negative (Negative)
[2021-09-22] MEDS: SODIUM CHLORIDE 0.9% IV 1,000 ML 999 ML IV CONT (11:36)
[2021-09-22 12:53] LABS: Lactate Dehydrogenase 363 U/L (313-618)
== END 2021-09-22 13:14 | disposition home or self-care (01) ==
PROVIDERS: Physician Assistant; Emergency Provider Emergency Medicine; PCP Family Medicine Sports Medicine
DX: R56.9 Unspecified convulsions (principal); E11.9 Type 2 diabetes mellitus without complications; I10 Essential (primary) hypertension; J45.909 Unspecified asthma, uncomplicated; F17.210 Nicotine dependence, cigarettes, uncomplicated
CPT/HCPCS: 36415; 70450; 80053; 80307; 81001; 83605; 83615; 83735; 84100; 84484; 85025; 93005; 96360; 99284; J7030

== ENCOUNTER 2021-12-14 10:15 | Outpatient (CLI) | payer OTHER, SELFPAY ==
--- NOTE | ~2021-12-14 | MR_ITS ---
EXAMINATION: MR shoulder RT wo con DATE: 12/14/2021 10:58 INDICATION: Recurrent rotator cuff tear. TECHNIQUE: Magnetic resonance imaging (MRI) of the right shoulder was performed without intravenous c ontrast. Sequences included axial PD-weighted FS FSE, coronal oblique PD-weighted FS FSE and T2-weigh sam FS FSE, and sagittal oblique T2-weighted FS FSE and T1-weighted FSE. COMPARISON: Right shoulder MRI 08/16/2020, radiographs 11/15/2021 FINDINGS: Coracoacromial arch: The acromion undersurface is flat in morphology (type I). There is severe acromioclavicular joint ost eoarthritis. There is severe subacromial/subdeltoid bursitis. Rotator cuff: There is a full-thickness tear of supraspinatus and anterior infraspinatus tendons measuring 21 mm an terior to posterior by 28 mm proximal to distal. Teres minor tendon is normal. There is moderate subs capularis tendinopathy. There are suture anchors in greater tuberosity. There is mild fatty atrophy o f supraspinatus, infraspinatus, and subscapularis muscle bellies. Biceps tendon and glenoid labrum: There is a complete tear of proximal biceps tendon. There is tearing of the glenoid labrum anterior a nd posterior to the biceps anchor. Fluid: There is a moderate-sized glenohumeral joint effusion. Bones/cartilage: There is shallow partial-thickness cartilage loss of glenoid. There is full-thickness cartilage loss of humeral head superomedially. IMPRESSION: 1. Recurrent full-thickness rotator cuff tear. 2. Severe glenohumeral joint chondrosis. 3. Complete tear of proximal biceps tendon. 4. Moderate-sized glenohumeral joint effusion and severe subacromial/subdeltoid bursitis. 5. Severe acromioclavicular joint osteoarthritis. Reviewed, dictated and finalized at location A.
== END 2021-12-14 10:16 | disposition home or self-care (01) ==
PROVIDERS: PCP Internal Medicine; Visit Provider Orthopaedic Surgery
DX: M75.51 Bursitis of right shoulder (principal); S46.211A Strain of muscle, fascia and tendon of other parts of biceps, right arm, initial encounter; X58.XXXA Exposure to other specified factors, initial encounter; M19.011 Primary osteoarthritis, right shoulder; M25.411 Effusion, right shoulder
CPT/HCPCS: 73221

== ENCOUNTER 2022-10-25 08:15 | Outpatient (RCR) | payer OTHER, SELFPAY ==
--- NOTE | 2022-07-29 16:05 | PTOPEVAL1 ---
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 She has been trying to wean herself from her sling. Reported Pain Level Pain Score 0: Self Report Assessment PT Clinical Summary Kayla is a 61 year old female coming into the clinic for post op care for a R reverse total shoulder surgery. She has decreased range of motion in forward flexion and external rotation at 0 degrees. Normal range in elbow, wrist, and hand. Working on progressing range of motion, strengthening scapular muscles, and pain control. Do not have pulleys for her to take home, recommended patient order some online. Will continue to progress through the protocol as surgeon approves next phase of recovery. Plan of Care Interventions Electrical Stimulation,Gait Training,Hot Pack/Cold Pack,Manual Therapy,Neuro Re-education,Patient/ Caregiver Education,Therapeutic Activities, Therapeutic Exercise,Ultrasound Other Interventions taping, cupping, IASTM PT Services Indicated Yes Treatment Frequency and 2x/wk for 4 weeks Duration These treatments will address the objective and functional deficits as defined above. The patient will be advanced safely and appropriately in order for the patient to progress towards his/her prior level of function. Additional exercises will be introduced and as well as a comprehensive home exercise program upon discharge, if needed, ?to ensure carryover of functional gains achieved in the clinic. This treatment plan has been reviewed and agreement upon by the patient.
--- NOTE | 2022-08-09 10:03 | PCPTNOTE ---
Pt. called and cancelled therapy this date. Pt. reported that she was not feeling well.
--- NOTE | 2022-08-15 15:23 | PTOPPROG ---
Assessment and note entered by Marcin La, PT Evaluation Information Assessment Status Progress Diagnosis R reverse total shoulder Onset 07/10/22 Subjective Information Patient reports she is trying to do all of her exercises and physical therapy without any pain meds including over the counter NSAIDS. Patient also wants to do a medication wash where she goes into the hospital and has a supervised removal of all of her prescription medications as she feels like she is having a lot of issues with a lot of them. That would happen in the next 1-3 weeks. Patient has tried her best not to sleep on her R side, but it sometime just happens. Also reports wrestling with her dog and being interested in a TENS unit Assessment PT Clinical Summary Kayla is a 61 year old female coming into the clinic with a diagnosis of R reverse total surgery (date of surgery 07/10/22). Patient showing range of motion of the R shoulder flexion at 100 degrees with pulleys and R external rotation at 30 degrees with cane and elbow at side. Main concern with patient is pain control as she is not wanting to use any pharmacological pain modalities and she tenses up so much during passive range of motion. Patient has interest in a TENS unit and although it is not something that can be worn constantly it would be some sort of relief. Awaiting new orders from surgeon or if they want us to continue the same precautions. Plan of Care Interventions Electrical Stimulation,Gait Training,Hot Pack/Cold Pack,Manual Therapy,Neuro Re-education,Patient/ Caregiver Education,Therapeutic Activities, Therapeutic Exercise,Ultrasound Other Interventions taping, cupping, IASTM PT Services Indicated Yes Treatment Frequency and 2x/wk for 4 weeks Duration These treatments will address the objective and functional deficits as defined above. The patient will be advanced safely and appropriately in order for the patient to progress towards his/her prior level of function. Additional exercises will be introduced and as well as a comprehensive home exercise program upon discharge, if needed, ?to ensure carryover of functional gains achieved in the clinic. This treatment plan has been reviewed and agreement upon by the patient.
--- NOTE | 2022-09-05 08:10 | PCPTNOTE ---
Pt. called and canceled today's appointment (09/05/22) due to being sick.
[2022-09-12 10:00] VITALS: BP_SYST 110
--- NOTE | 2022-09-12 10:52 | PTOPPROG ---
Assessment and note entered by Marcin La, PT Evaluation Information Assessment Status Progress Diagnosis Traumatic Complete tear of the R rotator cuff, joint replacement Onset 07/10/22 Subjective Information Patient reports she was pulling weeds yesterday and woke up today sore and having trouble lifting her arm up. (Have talked to patient today and before about following her precautions and in her words babying the shoulder for now and let things heal). Patient goes back to see the surgeon on October 01 she reports. Assessment PT Clinical Summary Kayla is a 61 year old female coming into the clinic with a diagnosis of R Reverse total shoulder arthroplasty. She was evaluated on 07/29/22 and has attended 12 sessions so far. Patient has made progress going from 30 degrees passive shoulder flexion and not allowing tolerating any other measurement at evaluation to 130 degrees passive shoulder flexion, 110 passive scaption, 38 degrees passive external rotation, and 70 degrees internal rotation alng with 90 degrees active shoulder flexion and 70 degrees active scaption. Physical therapist's main concern with patient is she continues to states doing chores with the R shoulder and am afraid she will overdo it before the shoulder is ready for the activity. Patient has been educated on it many times. Recommend continued therapy to work progressing through the protocol as tolerated. Plan of Care Interventions Electrical Stimulation,Gait Training,Hot Pack/Cold Pack,Manual Therapy,Neuro Re-education,Patient/ Caregiver Education,Therapeutic Activities, Therapeutic Exercise,Ultrasound Other Interventions cupping, taping, IASTM PT Services Indicated Yes Treatment Frequency and 2x/wk for 4 weeks Duration These treatments will address the objective and functional deficits as defined above. The patient will be advanced safely and appropriately in order for the patient to progress towards his/her prior level of function. Additional exercises will be introduced and as well as a comprehensive home exercise program upon discharge, if needed, ?to ensure carryover of functional gains achieved in the clinic. This treatment plan has been reviewed and agreement upon by the patient.
--- NOTE | 2022-09-19 10:40 | PCPTNOTE ---
Patient called & cancelled scheduled appointment this date due to not feeling well
[2022-10-10 08:56] VITALS: BP_SYST 120
--- NOTE | 2022-10-10 11:46 | PTOPPROG ---
Assessment and note entered by Marcin La, PT Evaluation Information Assessment Status Progress Diagnosis R revere shoulder arthroplasty Onset 07/10/22 Subjective Information Patient reports she is moving the shoulder better except for behind her back and herself and the surgeon are not happy about it. Patient also states she has been released to light desk duty. Patient's pain has been reduced not even needing modalities for the last 2 weeks after therapy sessions. Assessment PT Clinical Summary Kayla is a 61 year old female coming into the clinic with a diagnosis of R reverse total shoulder date of surgery 07/10/22 Currently doing all post op 12 week exercises as she can tolerate. Patient was evaluated on 07/29/22 and has attended 19 sessions with 3 cancelations. Patient is continuing to make slow but consistent improvements in range of motion and starting to work on strengthening. Recommend continued physical therapy to continue to progress through the protocol. Plan of Care Interventions Electrical Stimulation,Gait Training,Hot Pack/Cold Pack,Manual Therapy,Neuro Re-education,Patient/ Caregiver Education,Therapeutic Activities, Therapeutic Exercise,Ultrasound Other Interventions cupping, taping, IASTM PT Services Indicated Yes Treatment Frequency and 2x/wk for 4 weeks Duration These treatments will address the objective and functional deficits as defined above. The patient will be advanced safely and appropriately in order for the patient to progress towards his/her prior level of function. Additional exercises will be introduced and as well as a comprehensive home exercise program upon discharge, if needed, ?to ensure carryover of functional gains achieved in the clinic. This treatment plan has been reviewed and agreement upon by the patient.
--- NOTE | 2022-10-18 11:03 | PCPTNOTE ---
Patient had appointment at 8:45 but left and rescheduled for 2:45. She called and stated that she wasn't going to be able to come in at 2:45 due to feeling to anxious.
== END 2022-10-27 23:59 | disposition home or self-care (01) ==
LOC: ANHPT 08:15
PROVIDERS: PCP Internal Medicine
DX: M75.111 Incomplete rotator cuff tear or rupture of right shoulder, not specified as traumatic (principal); Z96.60 Presence of unspecified orthopedic joint implant
CPT/HCPCS: 97014; 97110; 97140; 97161; 97530; G0283

== ENCOUNTER 2022-12-09 10:30 | Outpatient (RCR) | payer OTHER, SELFPAY ==
[2022-10-28 00:02] VITALS: BP_SYST 120
--- NOTE | 2022-11-06 11:42 | PTOPPROG ---
Assessment and note entered by Marcin La, PT Evaluation Information Assessment Status Progress Diagnosis R revere shoulder arthroplasty Onset 07/10/22 Subjective Information Patient reports the progress is there, just going a lot slower than she wants. Patient also admits to carrying a heavy box yesterday and now the shoulder is more sore than it has been. Assessment PT Clinical Summary Kayla is a 61 year old female coming into the clinic with a diagnosis of R reverse total shoulder date of surgery 07/10/22 Currently doing all post op 12 week exercises as she can tolerate. Patient has attended 25 visits with three cancelations. Patient has improved active range of shoulder flexion to 122 degrees along with abduction of 110 degrees and external rotation to T1 and internal rotation to L4. range of motion appears more with exercises, but patient will become more guarded with motion when the goniometer comes out. Strength is grossly 4/5. Patient is making slow but consistent progress. If surgeon wants to continue therapy please send new order for more visits. Plan of Care Interventions Electrical Stimulation,Gait Training,Hot Pack/Cold Pack,Manual Therapy,Neuro Re-education,Patient/ Caregiver Education,Therapeutic Activities, Therapeutic Exercise,Ultrasound Other Interventions cupping, taping, IASTM PT Services Indicated Yes Treatment Frequency and 2x/wk for 8 visits Duration These treatments will address the objective and functional deficits as defined above. The patient will be advanced safely and appropriately in order for the patient to progress towards his/her prior level of function. Additional exercises will be introduced and as well as a comprehensive home exercise program upon discharge, if needed, ?to ensure carryover of functional gains achieved in the clinic. This treatment plan has been reviewed and agreement upon by the patient.
[2022-12-09 10:30] VITALS: BP_SYST 145
--- NOTE | 2022-12-09 11:10 | PTOPDC ---
Assessment and note entered by Irma Cohen, PT Evaluation Information Assessment Status Discharge Diagnosis R elías shoulder arthroplasty Onset 07/10/22 Subjective Information shoulder needs more strength, able to do the 2# weight but no more; is R handed, so problems at home with vacuum and sweeping, tend to baby her R side and use her L arm; hard to reach back of head to wash hair; is doing the exercises at home, using the red theraband; at this time, did not give her any restrictions for activity with therapy/home, but with work, for desk duties only- no lifting, pushing, pulling tasks; Reported Pain Level Pain Score Self Report Additional Pain Score Comments pain range in the past week 2-10; pain at top of shoulder joint- achey; increase pain: lifting things decrease pain: rest arm, ice is not taking any pain meds; Assessment PT Clinical Summary Kayla has received a total of 30 PT sessions. Functional strength testing: R UE x 10 reps in standing with hand weight: - elbow flexion with 4# - shoulder flexion to 80-0' with 2# - shoulder abduction to 80' with 2# - shoulder ER with elbow at side with 2# floor/waist lift bilateral UEs: increase weight to max weight of 10#- stop due to increase pull in shoulder R hand bucket carry 20', increase weight to max of 10#, stop due to pull in shoulder R shoulder ROM: active in standing/ passive in supine: flexion 110'/ 145; abduction 90'/ 145'; standing ER- reach behind head, palm to back of head; IR- reach behind back, palm to R SIJ; Compared to the last reassessment on 11-06-22: pain about the same rating; shoulder flexion active range decreased by 12' and abduction decreased by 20'; strength with shoulder flexion, ER and abduction same with 2# hand weight. Education completed for home exercises and posture
== END 2022-12-09 14:17 | disposition home or self-care (01) ==
LOC: ANHPT 10:30
PROVIDERS: PCP Internal Medicine
DX: M75.111 Incomplete rotator cuff tear or rupture of right shoulder, not specified as traumatic (principal); Z96.60 Presence of unspecified orthopedic joint implant
CPT/HCPCS: 97110; 97140; 97530; 99199

== ENCOUNTER 2022-12-13 10:22 | Observation (INO) | payer OTHER, SELFPAY ==
[2022-12-13] VITALS (41 sets, daily range): BP systolic 99–154; BP diastolic 56–80; PULSE 51–79; RESP 11–24; TEMP 36.4–36.8; O2SAT 95–100; BMI 29.6
--- NOTE | 2022-12-13 10:39 | ED.OVERDOSE ---
HPI - Overdose General Chief Complaint: Overdose Stated Complaint: overdose Time Seen by Provider: 12/13/22 10:31 History of Present Illness HPI Narrative: 61-year-old female presented the emergency department for evaluation after an attempted suicide. Patient reports she does have increased depression and she had some suicidal thoughts. Patient states she took 4 of her alprazolam, amlodipine, famotidine and escitalopram. Related Data Home Medications Medication Instructions Recorded Confirmed aspirin 81 mg tablet,delayed 81 mg PO DAILY 01/28/19 12/13/22 release (Adult Aspirin Regimen) dimenhydrinate 50 mg tablet 50 mg PO Q4-6H PRN Motion Sickness 01/28/19 12/13/22 alprazolam 0.25 mg tablet 0.5 mg PO BID PRN anxiety 08/09/19 12/13/22 escitalopram oxalate 20 mg tablet 20 mg PO DAILY 08/09/19 12/13/22 (Lexapro) rosuvastatin 40 mg tablet 40 mg PO DAILY 11/21/20 12/13/22 alprazolam 0.5 mg tablet 0.5 mg PO BID 12/13/22 12/13/22 famotidine 20 mg tablet 20 mg PO DAILY 12/13/22 12/13/22 Allergies Allergy/AdvReac Type Severity Reaction Status Date / Time Penicillins AdvReac Mild rash- Verified 04/04/22 10:44 occured as child Review of Systems Review of Systems: All systems reviewed & are unremarkable except as noted in HPI and below PMFSH Past Medical History Medical History Anemia Anxiety Arthritis Asthma Bilateral carpal tunnel syndrome BMI 33.0-33.9,adult Deficient knowledge of caesarean delivery Depression Diabetes FH: cholecystectomy Generalized anxiety disorder GI bleed Glaucoma Hiatal hernia Hypercholesterolemia Hypertension Hyperthyroidism Impingement syndrome of left shoulder Lightheadedness VIDAL (obstructive sleep apnea) Osteoarthritis of both hands Pneumonia Primary hypertension Right shoulder pain Rotator cuff arthropathy of left shoulder Rotator cuff tear Sleep apnea Upper back pain Urine ketones Vertigo Weight gain Surgical History Surgical History H/O: hysterectomy History of bladder surgery History of rotator cuff surgery (~2020) Hx of tonsillectomy Family History Family History Other Diabetes mellitus Family history of Alzheimer's disease Family history of cardiovascular disease Family history of coronary artery disease Hypertension Social History Social History Smoking packs per day: 0.5 Smoking cigarettes per day: 10.0 Years smoked: 10 Smoking pack-years: 5.00 Smoking status: Never smoker Tobacco type: cigarettes Second hand tobacco smoke exposure: No Alcohol intake: never Substance use: never Substance use type: marijuana Other substance usage details: EDIBLES Lack of Transportation: No Lack of Food: Never True Current Housing: I Have Housing Concerned About Future Housing: YES Difficulty Paying Gas/Electric Bills: No Difficulty Paying for Meds: No Currently Unemployed: No Education: High School Diploma/GED Difficulty w/ Childcare or Family Care: No Living arrangements: alone Gender identity (if verbalized by the patient): Female Spiritual care concerns: No Exam Narrative: APPEARANCE: Well appearing, no pain, no distress, well-nourished. HEAD: normocephalic, atraumatic. EYES: PERRLA/EOMI, conjunctivae clear. NOSE: Normal no drainage NECK: Supple. No adenopathy, no masses. RESPIRATORY: Airway patent, respirations nonlabored. Clear to auscultation bilaterally, no rales, rhonchi, wheezing. CARDIOVASCULAR: Regular rate and rhythm without murmurs rubs or gallops. ABDOMINAL: Soft, nontender, nondistended, normal bowel sounds MUSCULOSKELETAL: Moves all extremities. Strength/ROM intact, No edema, No calf tenderness. NEURO: Alert. Cranial nerves II through XII intact. Grossly intact SKIN: Warm, dry. No
[2022-12-13 10:48] LABS: Basophils Percent Auto 0.3 % (0.2-1.2); Eosinophils Absolute Auto 0.1 K/mm3 (0-0.3); Eosinophils Percent Auto 0.8 % (0-4.4); Hematocrit 38.6 % (37.0-47.0); Hemoglobin 11.6 g/dL (12.0-15.0); Immature Granulocyte Absolute 0.01 K/mm3 (0.00-0.031); Immature Granulocyte Percent A 0.2 % (0-0.5); Lymphocytes Absolute Auto 1.74 K/mm3 (0.9-3.2); Lymphocytes Percent Auto 29.3 % (18.3-44.2); Mean Corpuscular HGB Conc 30.1 g/dl (32-36); Mean Corpuscular Hemoglobin 25.4 pg (26-34); Mean Corpuscular Volume 84.6 fl (80-100); Monocytes Absolute Auto 0.5 K/mm3 (0.1-0.6); Monocytes Percent Auto 8.1 % (2.6-8.5); Neutrophils Absolute Auto 3.6 K/mm3 (1.3-6.7); Neutrophils Percent Auto 61.3 % (45.5-73.1); Platelet Count Result 282 k/mm3 (150-375); Red Blood Count 4.56 M/mm3 (4.2-5.4); Red Cell Distribution Width 16.5 % (11.5-14.5); White Blood Count 5.9 K/mm3 (4.5-10.0)
[2022-12-13 10:58] LABS: Ethanol < 10 mg/dL (<10)
[2022-12-13 10:59] LABS: Alanine Aminotransferase 19 U/L (6-35); Albumin Level 4.3 g/dL (3.5-5.1); Alkaline Phosphatase 79 U/L (38-126); Anion Gap 6 mmol/L (8-16); Aspartate Amino Transferase 31 U/L (14-36); Bilirubin,Total 0.5 mg/dL (0.2-1.3); Blood Urea Nitrogen 14 mg/dL (7-17); Calcium 8.9 mg/dL (8.4-10.2); Carbon Dioxide 27 mmol/L (22-30); Chloride 107 mmol/L (98-107); Estimated Glomerular Filt Rate > 60; Glucose 140 mg/dL (65-110); Potassium 4.1 mmol/L (3.4-5.0); Sodium 140 mmol/L (137-145)
--- NOTE | 2022-12-13 11:01 | ECG_ITS ---
Measurements Intervals [place] Rate: 62 P: 74 SC: 178 QRS: 52 QRSD: 86 T: 62 QT: 402 QTc: 410 Interpretive Statements SINUS RHYTHM NORMAL ECG COMPARED TO ECG 09/22/2021 09:05:37 NO SIGNIFICANT CHANGES Electronically Signed On 12-13-2022 11:36:54 CDT by Kirt Ruiz D.O.
[2022-12-13 11:09] LABS: Appearance Urine Clear (Clear); Bilirubin Urine Negative (Negative); Blood Urine Negative (Negative); Color Urine Yellow (Yellow); Glucose Urine UA Negative (Negative); Ketones Urine Negative (Negative); Leukocyte Esterase Ur Negative LEU/UL (Negative); Nitrate Urine Negative (Negative); Protein Urine Negative (Negative); Specific Grav Ur 1.006 (1.001-1.035); Urobilinogen Urine 0.2 mg/dL (<2.0); pH Urine 6.5 (5.0-9.0)
[2022-12-13 11:15] LABS: Add Urine Microscopic? NO
[2022-12-13 11:24] LABS: Amphetamine Screen Urine Negative (Negative); Barbiturate Screen Urine Negative (Negative); Benzodiazepines Screen Urine Positive (Negative); Cannabinoid Screen Urine Positive (Negative); Cocaine Screen Urine Negative (Negative); Methadone Screen Urine Negative (Negative); Opiate Screen Urine Negative (Negative); Phencyclidine Screen Urine Negative (Negative)
--- NOTE | 2022-12-13 11:30 | PC.NURSE ---
Poison control notified of Pt medications took, recommended monitoring blood pressure monitoring and management of 6-12 hours, MAP goal >65. Repeat EKG 6 hours with concern for QT prolongation. Faxed protocol for management of Blood pressure if decreasing.
[2022-12-13 12:54] LABS: SARS-CoV-2 RNA PCR Negative (Negative)
--- NOTE | 2022-12-13 13:01 | PM.IMHP ---
H&P: HPI History of Present Illness Date/Time: 12/13/22 13:01 Chief Complaint: Suicidal Ideation and Suicidal attempt 61-year-old female was admitted through the emergency room. Patient was seen in the ER. Patient came to emergency room for evaluation of suicidal ideation, current depression and suicidal attempt. According to the patient she does have increased depression and she had some suicidal thoughts.? Patient states she took 4 of her alprazolam, amlodipine, famotidine and escitalopram. At present time patient is feeling fine. Patient denies any shortness of breath or chest pain, no abdominal pain, nausea, no vomiting. Mood slightly depressed. Poison Control Center was consulted. Poison control recommended to observe the patient for at least an hours and monitor labs closely. Patient was admitted for further evaluation treatment. Review of Systems Review of Systems: All review of systems are negative except as noted in history and physical examination. [facility] Past Medical History Medical History Anemia Anxiety Arthritis Asthma Bilateral carpal tunnel syndrome BMI 33.0-33.9,adult Deficient knowledge of caesarean delivery Depression Diabetes FH: cholecystectomy Generalized anxiety disorder GI bleed Glaucoma Hiatal hernia Hypercholesterolemia Hypertension Hyperthyroidism Impingement syndrome of left shoulder Lightheadedness VIDAL (obstructive sleep apnea) Osteoarthritis of both hands Pneumonia Primary hypertension Right shoulder pain Rotator cuff arthropathy of left shoulder Rotator cuff tear Sleep apnea Upper back pain Urine ketones Vertigo Weight gain Surgical History Surgical History H/O: hysterectomy History of bladder surgery History of rotator cuff surgery (~2020) Hx of tonsillectomy Family History Family History Other Diabetes mellitus Family history of Alzheimer's disease Family history of cardiovascular disease Family history of coronary artery disease Hypertension Social History Social History Smoking packs per day: 0.5 Smoking cigarettes per day: 10.0 Years smoked: 10 Smoking pack-years: 5.00 Smoking status: Never smoker Tobacco type: cigarettes Second hand tobacco smoke exposure: No Alcohol intake: never Substance use: never Substance use type: marijuana Other substance usage details: EDIBLES Lack of Transportation: No Lack of Food: Never True Current Housing: I Have Housing Concerned About Future Housing: YES Difficulty Paying Gas/Electric Bills: No Difficulty Paying for Meds: No Currently Unemployed: No Education: High School Diploma/GED Difficulty w/ Childcare or Family Care: No Living arrangements: alone Gender identity (if verbalized by the patient): Female Spiritual care concerns: No Meds Home Medications and Allergies Home Medications Medication Instructions Recorded Confirmed Type aspirin 81 mg tablet,delayed 81 mg PO DAILY 01/28/19 12/13/22 History release (Adult Aspirin Regimen) dimenhydrinate 50 mg tablet 50 mg PO Q4-6H PRN Motion Sickness 01/28/19 12/13/22 History alprazolam 0.25 mg tablet 0.5 mg PO BID PRN anxiety 08/09/19 12/13/22 History escitalopram oxalate 20 mg tablet 20 mg PO DAILY 08/09/19 12/13/22 History (Lexapro) albuterol sulfate 2.5 mg/3 mL 2.5 mg (3 mL) inhalation Q4H PRN 09/20/20 12/13/22 Rx (0.083 %) solution for nebulization Shortness Of Breath #75 mL budesonide-formoterol HFA 160 2 inh inhalation Q12H #6 grams 09/20/20 12/13/22 Rx mcg-4.5 mcg/actuation aerosol inhaler (Symbicort) cholecalciferol (vitamin D3) 1,250 See Rx Instructions .Route 10/16/20 12/13/22 Rx mcg (50,000 unit) capsule .COMPLEX #12 caps rosuvastatin 40 mg tablet 40 mg PO DAILY 11/21/20 12/13/22 Hist
[2022-12-13] MEDS: DEXTROSE 5%/0.45% SOD CHL 1,000 ML 75 ML IV CONT (13:45)
[2022-12-13 14:02] LABS: Alanine Aminotransferase 17 U/L (6-35); Albumin Level 3.8 g/dL (3.5-5.1); Alkaline Phosphatase 82 U/L (38-126); Anion Gap 4 mmol/L (8-16); Aspartate Amino Transferase 22 U/L (14-36); Bilirubin,Total 0.5 mg/dL (0.2-1.3); Blood Urea Nitrogen 12 mg/dL (7-17); Calcium 8.6 mg/dL (8.4-10.2); Carbon Dioxide 27 mmol/L (22-30); Chloride 110 mmol/L (98-107); Estimated Glomerular Filt Rate > 60; Glucose 83 mg/dL (65-110); Potassium 4.1 mmol/L (3.4-5.0); Sodium 141 mmol/L (137-145)
--- NOTE | 2022-12-13 14:16 | PC.NURSE ---
Safety tray ordered
--- NOTE | 2022-12-13 14:55 | ECG_ITS ---
Measurements Intervals [place] Rate: 56 P: 74 [place]: 186 QRS: 59 QRSD: 93 T: 70 QT: 431 QTc: 417 Interpretive Statements SINUS BRADYCARDIA BORDERLINE ECG COMPARED TO ECG 12/13/2022 11:21:56 SINUS BRADYCARDIA NOW PRESENT Electronically Signed On 12-13-2022 15:04:04 CDT by Kirt Ruiz D.O.
--- NOTE | 2022-12-13 16:10 | ADMIMU ---
This patient, Kayla Matias, was admitted to IMU status, and placed in Intensive Care Unit-7. Patient/family oriented to hospital policies and general routines including ID bracelet, bed and alarms, visiting hours, pain management, procedures, bathroom and other care routines, personal items, smoking policy, room service/diet, and visiting hours. Valuables list has been completed. Information on how to activate the Rapid Response Team has been discussed. Patient/Family are encouraged to report perceived risks to care and to ask questions if they do not understand what they are told or what they should do.
[2022-12-13] MEDS: ROSUVASTATIN 10 MG TABLET 40 MG PO (21:15)
[2022-12-14] VITALS: BP 117/55; PULSE 54; PULSE 57; RESP 23; TEMP 36.6; O2SAT 100
[2022-12-14 02:00] VITALS: PULSE 58
[2022-12-14] MEDS: DEXTROSE 5%/0.45% SOD CHL 1,000 ML 75 ML IV CONT (02:29)
[2022-12-14 04:00] VITALS: BP 142/73; PULSE 58; PULSE 59; PULSE 66; RESP 19; RESP 23; TEMP 36.6; O2SAT 100; O2SAT 98
[2022-12-14 04:09] LABS: Basophils Percent Auto 0.6 % (0.2-1.2); Eosinophils Absolute Auto 0.1 K/mm3 (0-0.3); Eosinophils Percent Auto 1.6 % (0-4.4); Hematocrit 35.8 % (37.0-47.0); Hemoglobin 10.9 g/dL (12.0-15.0); Immature Granulocyte Absolute 0.01 K/mm3 (0.00-0.031); Immature Granulocyte Percent A 0.2 % (0-0.5); Lymphocytes Absolute Auto 1.52 K/mm3 (0.9-3.2); Lymphocytes Percent Auto 31.1 % (18.3-44.2); Mean Corpuscular HGB Conc 30.4 g/dl (32-36); Mean Corpuscular Hemoglobin 25.1 pg (26-34); Mean Corpuscular Volume 82.5 fl (80-100); Monocytes Absolute Auto 0.4 K/mm3 (0.1-0.6); Monocytes Percent Auto 7.4 % (2.6-8.5); Neutrophils Absolute Auto 2.9 K/mm3 (1.3-6.7); Neutrophils Percent Auto 59.1 % (45.5-73.1); Platelet Count Result 278 k/mm3 (150-375); Red Blood Count 4.34 M/mm3 (4.2-5.4); Red Cell Distribution Width 16.1 % (11.5-14.5); White Blood Count 4.9 K/mm3 (4.5-10.0)
[2022-12-14 04:22] LABS: Alanine Aminotransferase 17 U/L (6-35); Albumin Level 3.9 g/dL (3.5-5.1); Alkaline Phosphatase 76 U/L (38-126); Anion Gap 5 mmol/L (8-16); Aspartate Amino Transferase 26 U/L (14-36); Bilirubin,Total 0.5 mg/dL (0.2-1.3); Blood Urea Nitrogen 9 mg/dL (7-17); Calcium 8.8 mg/dL (8.4-10.2); Carbon Dioxide 29 mmol/L (22-30); Chloride 107 mmol/L (98-107); Estimated Glomerular Filt Rate > 60; Glucose 105 mg/dL (65-110); Sodium 141 mmol/L (137-145)
[2022-12-14 06:00] VITALS: PULSE 62
[2022-12-14 08:00] VITALS: BP 145/78; PULSE 65; PULSE 72; RESP 16; TEMP 36.2; O2SAT 98
--- NOTE | 2022-12-14 08:00 | ECG_ITS ---
Measurements Intervals [place] Rate: 62 P: 72 [place]: 172 QRS: 45 QRSD: 94 T: 60 QT: 413 QTc: 422 Interpretive Statements SINUS RHYTHM NORMAL ECG COMPARED TO ECG 12/13/2022 15:02:47 SINUS RHYTHM NOW PRESENT Electronically Signed On 12-14-2022 8:17:13 CDT by Kirt Ruiz D.O.
[2022-12-14] MEDS: FLUTICASONE/SALMETEROL 115-21 MCG INHALER 1 PUFF 2 PUFF INHALATION (09:13)
--- NOTE | 2022-12-14 09:28 | PM.IMPN ---
Progress Note: A&P Assessment and Plan (1) Suicide attempt: Code(s): T14.91XA - Suicide attempt, initial encounter Status: Acute Assessment and Plan: Patient is feeling better now. No suicidal ideation Psych consult and monitor closely. (2) Overdose: Code(s): T50.901A - Poisoning by unspecified drugs, medicaments and biological substances, accidental (unintentional), initial encounter Status: Acute Assessment and Plan: Consult poison Control. Monitor closely. (3) History of asthma: Code(s): Z87.09 - Personal history of other diseases of the respiratory system Status: Acute Assessment and Plan: Stable on current medications. Will continue current treatment. (4) History of hypertension: Code(s): Z86.79 - Personal history of other diseases of the circulatory system Status: Acute Assessment and Plan: Stable on current medication. Will continue good treatment. (5) History of esophageal reflux: Code(s): Z87.19 - Personal history of other diseases of the digestive system Status: Acute Assessment and Plan: Stable on current medication. Will continue current treatment. (6) Elevated blood sugar: Code(s): R73.9 - Hyperglycemia, unspecified Status: Acute Assessment and Plan: Diet instructions and monitor closely Plan Medically Clear Continue current treatment Psych eval. Subjective Date/time seen: 12/14/22 09:28 Interval history: Patient was seen during the morning rounds today. Feeling better. No sob or chest pain. No abdominal pain or nausea. Mood stable. No suicidal ideation Review of Systems Review of Systems: All review of systems are negative except as noted in history and physical examination. Exam Narrative: APPEARANCE: Well appearing, no pain, no distress, well-nourished. HEAD: normocephalic, atraumatic. EYES: PERRLA/EOMI, conjunctivae clear. NOSE: Normal no drainage EARS:TMS clear with good light reflex. THROAT: Pharynx clear, no exudate. NECK: Supple. No adenopathy, no masses. RESPIRATORY: Airway patent, respirations nonlabored. Clear to auscultation bilaterally, no rales, rhonchi, wheezing. CARDIOVASCULAR: Sinus tachycardia ABDOMINAL: Soft, nontender, nondistended, normal bowel sounds MUSCULOSKELETAL: Moves all extremities. Strength/ROM intact, No edema, No calf tenderness. NEURO: Alert. Cranial nerves II through XII intact.? Grossly intact SKIN: Warm, dry. Normal Color Objective Data Vital Signs Vital Signs: Vital Signs - 24 hr 12/13/22 10:31 12/13/22 10:45 12/13/22 11:20 Temperature 36.8 C Pulse Rate 61 59 L Respiratory Rate 18 24 H Blood Pressure 154/73 H 114/75 Pulse Oximetry 100 98 Oxygen Delivery Room Air 12/13/22 11:45 12/13/22 12:00 12/13/22 12:04 Temperature Pulse Rate 55 L 61 65 Respiratory Rate 21 H 17 13 Blood Pressure 99/56 L 139/80 Pulse Oximetry 97 99 99 Oxygen Delivery 12/13/22 12:45 12/13/22 12:46 12/13/22 13:00 Temperature Pulse Rate 59 L 71 66 Respiratory Rate 14 20 16 Blood Pressure 118/66 Pulse Oximetry 99 98 98 Oxygen Delivery 12/13/22 13:01 12/13/22 13:08 12/13/22 13:15 Temperature Pulse Rate 72 51 L 57 L Respiratory Rate 22 H 12 20 Blood Pressure 121/62 Pulse Oximetry 99 99 98 Oxygen Delivery 12/13/22 13:18 12/13/22 13:19 12/13/22 13:31 Temperature Pulse Rate 59 L 59 L 60 Respiratory Rate 18 19 17 Blood Pressure 126/61 136/68 Pulse Oximetry 96 97 96 Oxygen Delivery 12/13/22 13:32 12/13/22 13:46 12/13/22 13:47 Temperature Pulse Rate 66 79 66 Respiratory Rate 16 13 13 Blood Pressure 140/70 Pulse Oximetry 96 Oxygen Delivery 12/13/22 14:00 12/13/22 14:19 12/13/22 14:30 Temperature Pulse Rate 57 L 56 L 57 L Respiratory Rate 19 19 17 Blood Pressure Pulse Oximetry 96 95 96 Oxygen Delivery 12/13/22 14:31 12/13/22 14:50 12/13/22 15:00
[2022-12-14] MEDS: ASPIRIN 81 MG ENTERIC TABLET PO (09:34)
[2022-12-14] MEDS: ESCITALOPRAM OXALATE 10 MG TABLET 20 MG PO (09:34)
[2022-12-14] MEDS: LOSARTAN POTASSIUM 25 MG TABLET PO (09:34)
--- NOTE | 2022-12-14 14:50 | PC.NURSE ---
patient discharged to stay with step mom and dad. Safety contract in place.
--- NOTE | 2022-12-15 12:39 | PM.DS ---
DS: Admitting Diagnosis Discharge Date 12/14/22 Admitting Diagnosis suicidal attempt DS: Discharge Diagnosis Discharge Diagnosis (1) Suicide attempt: Code(s): T14.91XA - Suicide attempt, initial encounter Status: Acute Assessment and Plan: Patient is feeling better now. No suicidal ideation Psych consult and monitor closely. (2) Overdose: Qualifiers: Encounter type: initial encounter Injury intent: accidental or unintentional Qualified Code(s): T50.901A - Poisoning by unspecified drugs, medicaments and biological substances, accidental (unintentional), initial encounter Code(s): T50.901A - Poisoning by unspecified drugs, medicaments and biological substances, accidental (unintentional), initial encounter Status: Acute Assessment and Plan: Consult poison Control. Monitor closely. (3) History of asthma: Code(s): Z87.09 - Personal history of other diseases of the respiratory system Status: Acute Assessment and Plan: Stable on current medications. Will continue current treatment. (4) History of hypertension: Code(s): Z86.79 - Personal history of other diseases of the circulatory system Status: Acute Assessment and Plan: Stable on current medication. Will continue good treatment. (5) History of esophageal reflux: Code(s): Z87.19 - Personal history of other diseases of the digestive system Status: Acute Assessment and Plan: Stable on current medication. Will continue current treatment. (6) Elevated blood sugar: Code(s): R73.9 - Hyperglycemia, unspecified Status: Acute Assessment and Plan: Diet instructions and monitor closely Plan Medically Clear Continue current treatment Psych eval. DS: Summary Hospital Course Hospital Course: Patient was admitted with suicidal attempt. Patient took multiple medications. Poison control was consulted and iv fluid was give. After 24 hours patient was cleared and discharged home with her sister in stable condition. Status at Discharge Cognitive/behavioral status at discharge: Stable Time Spent with Patient Time attestation: Total time spent providing and/or coordinating discharge services: Exam Narrative: APPEARANCE: Well appearing, no pain, no distress, well-nourished. HEAD: normocephalic, atraumatic. EYES: PERRLA/EOMI, conjunctivae clear. NOSE: Normal no drainage EARS:TMS clear with good light reflex. THROAT: Pharynx clear, no exudate. NECK: Supple. No adenopathy, no masses. RESPIRATORY: Airway patent, respirations nonlabored. Clear to auscultation bilaterally, no rales, rhonchi, wheezing. CARDIOVASCULAR: Sinus tachycardia ABDOMINAL: Soft, nontender, nondistended, normal bowel sounds MUSCULOSKELETAL: Moves all extremities. Strength/ROM intact, No edema, No calf tenderness. NEURO: Alert. Cranial nerves II through XII intact.? Grossly intact SKIN: Warm, dry. Normal Color Discharge Plan Discharge Attending physician on discharge: Jesús Boyle Consulting providers: Wesley Rowland Discharging Clinician: Jesús Boyle Anticipated Discharge Date/Time: 12/14/22 14:15 Patient Disposition: Home, Self-Care Activity: as tolerated Diet: as tolerated and regular Patient Instructions: Depression (DC), Generalized Anxiety Disorder (GEN), Suicide Prevention (DC) Stand Alone Forms: General Discharge Information Follow-up/Referrals: Germaine,MD Lavinia [Primary Care Provider] - 1 Week Discharge Medications: Continued dimenhydrinate 50 mg tablet 50 mg PO Q4-6H PRN (Reason: Motion Sickness) aspirin [Adult Aspirin Regimen] 81 mg tablet,delayed release (DR/EC) 81 mg PO DAILY alprazolam 0.25 mg tablet 0.5 mg PO BID PRN (Reason: anxiety) escitalopram oxalate [Lexapro] 20 mg tablet 20 mg PO DAILY rosuvastatin 40 mg tablet 40 mg PO DAILY alprazolam 0.5 mg tablet 0.5 mg PO BID famotidine 20 m
== END 2022-12-14 14:50 | disposition home or self-care (01) ==
LOC: ANHED 12:57 → ANHICU 16:26
PROVIDERS: Admitting Provider Internal Medicine; Emergency Provider Emergency Medicine; PCP Internal Medicine; Visit Provider Internal Medicine
DX: T14.91XA Suicide attempt, initial encounter (principal); T42.4X2A Poisoning by benzodiazepines, intentional self-harm, initial encounter; T46.1X2A Poisoning by calcium-channel blockers, intentional self-harm, initial encounter; T47.0X2A Poisoning by histamine H2-receptor blockers, intentional self-harm, initial encounter; F41.8 Other specified anxiety disorders; J45.909 Unspecified asthma, uncomplicated; I10 Essential (primary) hypertension; E78.00 Pure hypercholesterolemia, unspecified; E05.90 Thyrotoxicosis, unspecified without thyrotoxic crisis or storm; K21.9 Gastro-esophageal reflux disease without esophagitis; E11.65 Type 2 diabetes mellitus with hyperglycemia; Z20.822 Contact with and (suspected) exposure to COVID-19
CPT/HCPCS: 36415; 80053; 80307; 81003; 84443; 85025; 87635; 93005; 94640; 96360; 96361; 99285; A9270; G0378; G0379

== ENCOUNTER 2024-06-21 11:11 | Outpatient (CLI) | payer MEDICARE, SELFPAY ==
--- NOTE | ~2024-06-21 | US_ITS ---
Limited Abdominal Sonogram: Real-time sonographic imaging of the right upper quadrant was performed. Clinical History: Fatty liver Findings: The liver appears normal with no evidence of mass lesion or bile duct dilatation. Main por rogers vein demonstrates normal direction of flow. The gallbladder is absent, compatible prior cholecyst ectomy. The common bile duct measures 4 mm. The visualized pancreas, aorta, and IVC are unremarkable . Impression: No significant abnormality seen. Reviewed, dictated and finalized at location M. Impression: No significant abnormality seen.
== END 2024-06-21 11:12 | disposition home or self-care (01) ==
LOC: GOSHIMG 11:13
PROVIDERS: PCP Internal Medicine; Visit Provider Internal Medicine
DX: K76.0 Fatty (change of) liver, not elsewhere classified (principal)
CPT/HCPCS: 76705